=== PATIENT | female | born 1935 | race Caucasian/White ===

== ENCOUNTER → 2018-08-11 16:10 | Outpatient (REF) | payer MEDICARE, SELFPAY | LOC: LAB 16:10 | PROVIDERS: PCP Family Medicine; Visit Provider Nurse Practitioner Family | DX: L08.9 Local infection of the skin and subcutaneous tissue, unspecified (principal) | CPT/HCPCS: 87070; 87075; 87077; 87147; 87186; 87205 ==

== ENCOUNTER → 2019-06-25 15:24 | Outpatient (ROUT) | payer MEDICARE, SELFPAY | PROVIDERS: PCP Family Medicine; Visit Provider Internal Medicine | DX: R89.5 Abnormal microbiological findings in specimens from other organs, systems and tissues (principal); B96.89 Other specified bacterial agents as the cause of diseases classified elsewhere | CPT/HCPCS: 87070; 87075; 87077; 87147; 87186; 87205 ==

== ENCOUNTER → 2019-11-19 11:01 | Outpatient (ROUT) | payer MEDICARE, SELFPAY | PROVIDERS: PCP Family Medicine; Visit Provider Registered Nurse | DX: R89.5 Abnormal microbiological findings in specimens from other organs, systems and tissues (principal); B96.89 Other specified bacterial agents as the cause of diseases classified elsewhere | CPT/HCPCS: 87070; 87075; 87077; 87147; 87186; 87205 ==

== ENCOUNTER 2019-12-13 19:50 | Observation (INO) | payer MEDICARE, SELFPAY ==
[2019-12-13 20:23] VITALS: BP 143/63; PULSE 75; RESP 16; TEMP 37.6; O2SAT 99
[2019-12-13 20:24] LABS: Add Manual Diff / Slide Review NO; Basophils Absolute Auto 100 /uL (0-100); Basophils Percent Auto 0.6 % (0-2); Eosinophils Absolute Auto 0 /uL (0-450); Eosinophils Percent Auto 0.1 % (2-4); Hematocrit 41.3 % (36-46); Hemoglobin 14.1 g/dL (12.0-16.0); Lymphocytes Absolute Auto 1700 /uL (1100-4500); Lymphocytes Percent Auto 16.2 % (25-40); Mean Corpuscular HGB Conc 34.1 % (30-36); Mean Corpuscular Volume 90.9 fL (80-100); Monocytes Absolute Auto 500 /uL (0-900); Monocytes Percent Auto 5.1 % (3-14); Neutrophils Absolute Auto 8100 /uL (1500-7000); Platelet Count 236 X10^3/uL (150-400); Red Blood Cell Count 4.54 X10^6/uL (4.0-5.2); White Blood Cell Count 10.4 X10^3/uL (4.5-11.0)
[2019-12-13] MEDS: VANCOMYCIN 1,000 MG/200 ML PIGGYBACK 200 MG IV (20:33)
[2019-12-13] MEDS: SODIUM CHLORIDE 0.9% 1,000 ML 100 ML IV (20:33)
--- NOTE | 2019-12-13 21:10 | PC.NURSE ---
Pt arrives via EMS, EMS reports cellulitis to right arm and spreading to back. Pt on antibiotics, hx of dementia, poor historian not able to get history from Pt. Pt also has wound to L foot covered with bandage upon arrival.
[2019-12-13 21:39] LABS: Alanine Aminotransferase 10 IU/L (<35); Albumin 3.5 g/dL (3.5-5.0); Albumin Globulin Ratio 1.1 (1.0-2.8); Alkaline Phosphatase 69 U/L (38-126); Aspartate Aminotransferase 21 IU/L (14-36); Bilirubin Total 0.3 mg/dL (0.2-1.3); Blood Urea Nitrogen 12 mg/dL (7-17); Calcium 9.3 mg/dL (8.4-10.2); Carbon Dioxide 27 mmol/L (22-32); Chloride 97 mmol/L (98-107); Estimated Glomerular Filt Rate > 60.0 mL/min (>60); Globulin 3.3 g/dL (1.7-4.1); Glucose 110 mg/dL (80-110); HEMOLYSIS < 15 (0-50); Lactate (Lactic Acid) 1.2 mmol/L (0.7-2.1); Potassium 4.4 mmol/L (3.4-5.1); Sodium 132 mmol/L (137-145); Total Protein 6.8 g/dL (6.3-8.2)
[2019-12-13 21:41] VITALS: BP 129/69; PULSE 82; RESP 13; O2SAT 96
--- NOTE | 2019-12-13 22:04 | ED_ITS ---
HPI - Sepsis General Chief Complaint: Fever Mode of arrival: EMS Source: EMS and other (Dr Davey) Limitations: altered mental status Evaluation Sepsis Screen: No Definite Risk Narrative: The patient resides in a local adult care facility. She has dementia, I was contacted by her doctor, Dr. Davey. The patient has recently been on doxycycline for a left lateral foot infection, finishing the doxycycline course about 4 days ago. She was contacted by the care facility today due to redness on the right arm. She initially intended to restart doxy, then decided to start Septra DS, after phone conversation. She did evaluate the patient. There is cellulitis in the right upper extremity, and across her upper back. There is no clear etiology to explain this distribution of erythema and inflammation. Fevers not prevalent. The patient responds verbally, but generally confused. After arrival here, she is initially not responding verbally, but is obviously awake and watching me. Later she did make comments, inconsistent with the events at that time. She has a history of dementia, but her response may be altered. The patient is DNR. Dr. Davey considered treatment of the infection locally in the care facility. Apparently state guidelines require she be assessed a here at the hospital. There is no suggestion of URI symptoms, cough or dyspnea. There is no nausea vomiting. She has no chronic skin issues. In addition to dementia, she also has a diagnosis of schizophrenia and seizure disorder. I discussed the case with the patient's legal advocate, Ms. Connie Sierra. Ms. Sierra would have advocated her stay in the facility, but felt it was necessary for her to the patient be evaluate her also. Review of Systems Review of Systems ROS Unobtainable: Unobtainable due to medical condition Patient History Medical History (Updated 12/14/19 @ 05:19 by Zaid Nicholson MD) Bipolar disorder (Acute) Dementia (Acute) Seizures (Acute) Surgical History Status post rotator cuff repair Family History Father Essential hypertension Mother Diabetes mellitus Social History (Updated 12/14/19 @ 05:10 by Zaid Nicholson MD) household members: none Smoking Status: Never smoker alcohol intake: never additional social history: The patient resides the [facility]. Smoking Status: Never smoker Substance Use Type: does not use Exam Initial Vital Signs Initial Vital Signs: Vital Signs Temperature 99.6 F 12/13/19 20:23 Pulse Rate 75 12/13/19 20:23 Respiratory Rate 16 12/13/19 20:23 Blood Pressure 143/63 H 12/13/19 20:23 Pulse Oximetry 99 12/13/19 20:23 Const General: No acute distress, disheveled and frail appearing Nutritional Appearance: average body habitus [facility] Head: normocephalic and atraumatic Mouth: oral mucosae normal Eyes General: appearance normal, both eyes and all related structures Eyelids: eyelids normal Conjunctivae: conjunctivae normal Sclera: sclerae normal Pupils: PERRL EOM: EOM intact bilaterally Neck Neck: normal visual inspection, trachea midline, No lymphadenopathy and No JVD Lymphatic: No lymphedema Resp Effort & Inspection: normal respiratory effort, able to speak in complete sentences, no respiratory distress and no use of accessory muscles Auscultation: clear to auscultation bilaterally, no rales, no rhonchi and no wheezes Cardio Rate: regular rate Rhythm: regular rhythm Heart Sounds: S1 normal, S2 normal, no click, no gallops, no murmurs and no rubs Pulses: normal peripheral pulses GI Palpation: soft and No tender Back/Spine/Pelvis Back: No CVA tenderness Skin Other: Erythema with warmth on the right upper arm, above the elbow. Erythema with warmth extending across her thoracic back. There is no fluctuance or induration. There is no area of purulence. There is no indicator for the rash may have started. There is no other significant area of erythema. Her left foot which was recently treated seems she has an area of flaky skin on the left lateral foot without significant erythema or warmth. Extrem Other: Rigidity in all extremities, extension of the ankles bilaterally with significant decreased motion in the lower extremities. Dorsalis pedis pulses normal in both feet. Course Course Course Narrative: The patient was on doxycycline just recently. I started the patient on IV vancomycin. Labs are reviewed. The hospitalist, JAIRO Reynoso was contacted. The patient will be admitted for continued IV antibiotics. Orders Ordered: ED Orders 12/13/19 20:55 Blood Culture Stat Comprehensive Metabolic Panel Stat Lactate (Lactic Acid) Stat Sodium Chloride (Normal Saline 0.9%) 1,000 mls @ 100 mls/hr IV CONT JEANE Last Admin: 12/13/19 20:33 Dose: 100 mls/hr Documented by: ZAHIDA Loratadine (Claritin) 10 mg PO DAILY [facility] Last Admin: 12/14/19 03:56 Dose: 10 mg Documented by: MELISSA Naloxone HCl (Narcan) 0.2 mg IV Q2MIN PRN PRN Reason: Opiate Reversal Zinc Acetate/Diphenhydramine (Itch Relief Cream) 1 applic TOP TID [facility] Discontinued Medications Vancomycin HCl (Vancomycin) 1,000 mg in 200 mls @ 200 mls/hr IV NOW ONE Stop: 12/13/19 21:23 Last Infusion: 12/13/19 22:43 Dose: 100 mls/hr Documented by: Admin: 12/13/19 20:33 Dose: 200 mls/hr Documented by: ZAHIDA Methylprednisolone (Solu-Medrol 125 Mg Vial) 60 mg IV NOW ONE Stop: 12/14/19 03:26 Last Admin: 12/14/19 03:55 Dose: 60 mg Documented by: MELISSA Vital Signs Vital signs: Vital Signs - 8 hr 12/13/19 21:41 12/13/19 22:16 12/13/19 22:30 Pulse Rate 82 77 73 Respiratory Rate 13 18 21 Blood Pressure [Left Arm] 129/69 130/62 136/68 Pulse Oximetry 96 96 93 MDM - Sepsis Lab Data Result diagrams: 12/13/19 20:00 12/13/19 20:55 Labs: Lab Results 12/13/19 12/13/19 12/13/19 Range/Units 20:00 20:55 20:55 WBC 10.4 (4.5-11.0) X10^3/uL RBC 4.54 (4.0-5.2) X10^6/uL Hgb 14.1 (12.0-16.0) g/dL Hct 41.3 (36-46) % MCV 90.9 (80-100) fL MCH 31.0 (26-34) PG MCHC 34.1 (30-36) % RDW 14.0 (11.6-14.8) % Plt Count 236 (150-400) X10^3/uL Neut % (Auto) 78.0 H (50-75) % Lymph % (Auto) 16.2 L (25-40) % [place] % (Auto) 5.1 (3-14) % Eos % (Auto) 0.1 L (2-4) % Baso % (Auto) 0.6 (0-2) % Neut # (Auto) 8100 H (2255-1619) /uL Lymph # (Auto) 1700 (0621-1379) /uL [place] # (Auto) 500 (0-900) /uL Eos # (Auto) 0 (0-450) /uL Baso # (Auto) 100 (0-100) /uL Sodium 132 L (137-145) mmol/L Potassium 4.4 (3.4-5.1) mmol/L Chloride 97 L (98-107) mmol/L Carbon Dioxide 27 (22-32) mmol/L BUN 12 (7-17) mg/dL Creatinine 0.60 (0.52-1.04) mg/dL Estimated GFR > 60.0 (>60) mL/min BUN/Creatinine Ratio 20.0 (6-22) Glucose 110 (80-110) mg/dL Lactate 1.2 (0.7-2.1) mmol/L Calcium 9.3 (8.4-10.2) mg/dL Total Bilirubin 0.3 (0.2-1.3) mg/dL AST 21 (14-36) IU/L ALT 10 (<35) IU/L Alkaline Phosphatase 69 (38-126) U/L Total Protein 6.8 (6.3-8.2) g/dL Albumin 3.5 (3.5-5.0) g/dL Globulin 3.3 (1.7-4.1) g/dL Albumin/Globulin Ratio 1.1 (1.0-2.8) Discharge Plan Departure Patient Disposition: Admitted as Observation Clinical Impression: Cellulitis, Dementia Discharge Date/Time: 12/13/19 23:51 Admit Date/Time: 12/13/19 22:39 Admit Provider: Mitchell Reynoso
[2019-12-13 22:16] VITALS: BP 130/62; PULSE 77; RESP 18; O2SAT 96
[2019-12-13 22:30] VITALS: BP 136/68; PULSE 73; RESP 21; O2SAT 93
[2019-12-13 23:02] VITALS: BP 136/68; PULSE 75; RESP 18; O2SAT 94
[2019-12-14 00:47] VITALS: BP 120/75; PULSE 75; RESP 18; TEMP 36.9; O2SAT 92
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
--- NOTE | 2019-12-14 02:31 | PC.ADMIT ---
Addendum entered by Salud Pettit R.N. 12/14/19 03:17: Photos taken of patient's wound and EZ graph done and placed in chart. Original Note: Patient arrived on floor at 0030, via portable stretcher and was transferred via slider board. Patient is alert to self and knows her birthday and where she is. VSS, lung sounds clear, patient denies pain or nausea. Patient has skin ulcer on L medial foot, and erythema rash on right arm extending to her full back, blanchable erythema area on coccyx. Patient is maximum assist, and Q2 turn for worries about skin break down, patient is not able to move on her own. Patient is contracted in arms and hands bilaterally, L foot mildly looks deformed and patient can not move that leg. Heels were floated w/waffle cushion boots. L foot wound open to air. SCD's bilaterally, patient was educated on use of call light, bed is low and locked, bed alarm on. [id number] Admission Note: The patient,Kalpana Alonso,84 y/o, was given written information regarding hospital policies, unit procedures and contact persons. Patient's smoking status: Never smoker. Vital Signs - 8 hr 12/13/19 20:23 12/13/19 21:41 12/13/19 22:16 Temperature 99.6 F Pulse Rate 75 82 77 Respiratory Rate 16 13 18 Blood Pressure 143/63 H Blood Pressure [Left Arm] 129/69 130/62 Pulse Oximetry 99 96 96 12/13/19 22:30 12/13/19 23:02 12/14/19 00:47 Temperature 98.4 F Pulse Rate 73 75 75 Respiratory Rate 21 18 18 Blood Pressure 120/75 Blood Pressure [Left Arm] 136/68 136/68 Pulse Oximetry 93 94 92 Oa
[2019-12-14] MEDS: methylPREDNISolone 125 MG/2 ML VIAL 60 MG IV (03:55)
[2019-12-14] MEDS: LORATADINE 10 MG TABLET PO (03:56)
[2019-12-14 06:48] VITALS: BP 107/58; PULSE 64; RESP 16; TEMP 36.2; O2SAT 91
[2019-12-14 07:50] VITALS: BP 140/70; PULSE 69; RESP 16; TEMP 36.1; O2SAT 95
[2019-12-14] MEDS: ASPIRIN 81 MG CHEW TAB PO (08:54)
[2019-12-14] MEDS: CITALOPRAM 20 MG TABLET PO (08:54)
[2019-12-14 09:23] LABS: Blood Urea Nitrogen 11 mg/dL (7-17); Calcium 9.1 mg/dL (8.4-10.2); Carbon Dioxide 22 mmol/L (22-32); Chloride 102 mmol/L (98-107); Estimated Glomerular Filt Rate > 60.0 mL/min (>60); Glucose 139 mg/dL (80-110); HEMOLYSIS 23 (0-50); Potassium 4.2 mmol/L (3.4-5.1); Sodium 134 mmol/L (137-145)
[2019-12-14 09:32] LABS: Add Manual Diff / Slide Review NO; Basophils Absolute Auto 200 /uL (0-100); Eosinophils Absolute Auto 0 /uL (0-450); Eosinophils Percent Auto 0.1 % (2-4); Hematocrit 40.1 % (36-46); Hemoglobin 13.6 g/dL (12.0-16.0); Lymphocytes Absolute Auto 800 /uL (1100-4500); Lymphocytes Percent Auto 10.5 % (25-40); Mean Corpuscular HGB Conc 33.8 % (30-36); Mean Corpuscular Hemoglobin 30.9 PG (26-34); Mean Corpuscular Volume 91.4 fL (80-100); Monocytes Absolute Auto 100 /uL (0-900); Monocytes Percent Auto 1.3 % (3-14); Neutrophils Absolute Auto 6200 /uL (1500-7000); Neutrophils Percent Auto 85.1 % (50-75); Platelet Count 173 X10^3/uL (150-400); Red Blood Cell Count 4.39 X10^6/uL (4.0-5.2); Red Cell Distribution Width 14.2 % (11.6-14.8); White Blood Cell Count 7.3 X10^3/uL (4.5-11.0)
--- NOTE | 2019-12-14 11:00 | CM.DANOTE ---
Addendum entered by Reva Jimenez R.N. 12/14/19 12:55: Spoke to Taya, for patient has discharge orders. Faxed over signed med list, and discharge summary. Confirmed lease picker time of 1430, and updated guardian, Laurel, as well as nurse, Li. Updated white board as well. Original Note: DCP: Case received, EMR reviewed, and checked on patient. Was able to call over at [facility] and speak to Taya, charge nurse, at [facility]. Also, discussed patient during patient rounds. DCP assessment completed with information currently available. Patient is an 84 year old female who admitted yesterday evening to the care of the hospitalist team. PCP: Dr. Loera/Basim. Payer: confirmed: Medicare. Patient came over to the hospital via ambulance from [facility]. Staff/nurses, were conderned that patient might have cellulitis on her upper extremity that spread to her back. Spoke to Taya, charge nurse at [facility]. Baseline care consists of hoier lift, otherwise, patient is mostly in bed. She does get up for meals, has some swallowing deficits, and needs cueing for eating. She is total care. Confirmed that patient does have a guardian named Laurel Sierra. Did speak to Laurel, for she called with an update. Let her know that patient could potentially discharge today. P: DCP to continue to follow. Patient could discharge back to [facility] today, for Dr. West stated that redness looks like dermatitis, versus cellulitis. Updated Taya at [facility], who stated that they can accept her back today without needing an assessment. Reva Jimenez RN/[employer]
[2019-12-14] MEDS: DIPHENHYDRAMINE TOP (11:22)
[2019-12-14] MEDS: ZINC TOP (11:22)
[2019-12-14 11:35] VITALS: BP 97/66; PULSE 67; RESP 14; TEMP 36.4; O2SAT 94
[2019-12-14] MEDS: DIVALPROEX DR 250 MG TABLET 500 MG PO (12:34)
--- NOTE | 2019-12-14 14:42 | PC.NURSE ---
Addendum entered by Li Rodriguez R.N. 12/14/19 14:46: DC - per , pt to return to [facility], [place] oral abx pt had been on, OTC scripts provided per discussed with Zully, nurse at [facility], signed med list provided, pt karen lift to , no clothing here, only pad. Pt cheerful, no complaints. Original Note: AM NOTE - pt awakens easily, oriented to hospital, responses are appropriate, denies pain, 3+ pedal edema l foot w/foot drop, wearing ulises heel protectors, allevyn to chronic wound cdi, can only wiggle to toes on her rt foot on command, ra 95%, pt has a red, non raised scattered rash area from r elbow up arm to shoulder and accross r scapula, no open areas, smooth to touch, ulises resting hand tremors, does keep hands contracted but with set up able to feed herself some 'I can do it myself, incont urine and stool, pericare performed, barrier cream to buttock, no opening noted.
--- NOTE | 2019-12-14 16:50 | PM.DS.1 ---
History of Present Illness History of Present Illness Date Patient Seen: 12/14/19 Time Patient Seen: 08:30 Chief complaint: Rt Arm cellulitis Narrative: As per JAIRO Mariano: HPI is obtained via review of records. Patient is unable to partake in the HPI interview due to underlying cognitive impairments. The patient is an 84-year-old with PMHx of psychiatric illness, dementia (records suspect Alzheimer's), GERD, overactive bladder, RLS, glaucoma, left foot/ankle injury, and loss of physical independence since May 2016. Patient's psychiatric history significant for bipolar 1 disorder, dx at age 67 (w/ psychotic sx), unspecified neurocognitive disorder, schizophrenia and psychogenic polydipsia w/ hyponatremia. She is known to have had multiple psychiatric hospitalizations for threats of suicide, acute psychosis, or cognitive impairment. Records show prior hospitalizations at [facility] and [facility]. Patient presented to the ED via EMS on 12/13/2019 and triaged at 8:23 p.m. Presenting complaint of cellulitis of the right arm. It was noted that patient was receiving antibiotics, however cellulitis is not improving, and has now spread to the back. I spoke to the care staff at [facility]. Per info provided, patient was diagnosed with RUE cellulitis and started on doxycycline. Patient was noted to have associated symptoms of a fever and change in mental status. Patient was noted as febrile, however she did not have any fevers on presentation to the ED. Review of her record shows no documented fever at her care facility. On arrival to the ED patient had stable VS... T 99.6F BP 143/63 HR 75 RR 16 and SpO2 99%. Her presenting mentation is noted as confused per ED record. Patient does have underlying dementia and baseline neurocognitive impairment. Patient also presented with a wound to left lateral foot. Initial ED labs were fairly unremarkable. No leukocytosis or left shift. Normal lactate (1.2). No overt electrolyte abnormalities with exception of mild hyponatremia, Na 132 Cl 97, in a patient with multiple psychotropic medications and a history of documented psychogenic polydipsia with hyponatremia. No laboratory evidence of kidney or liver dysfunction. No SIRS. Review of patient's records shows MRSA positive wound culture (location of wound is not specified) that is sensitive to daptomycin, vancomycin, clindamycin, doxycycline, erythromycin, gentamicin, and Bactrim. Wound cx results dated 11/19/2018. Patient has a consistent trend of MRSA positive wound culture of the wound in her left lower extremity. It appears patient was started on a seven day course of doxycycline on 12/11/2019 and Benadryl prn. It appears 2 days ago she has developed redness of RUE. Over the past 2 days patient has not been febrile or had any abnormal VS per my conversation with the care staff at [facility]. However, the nurse did comment that it was communicated to her that the patient was acting funny. The nurse could not comment further on with that means. The nurse did communicated that patient's symptoms included right upper extremity redness with spread to posterior upper back, reports patient having itching, also notes that patient may have had associated pain and reports patient being treated for pain. No reported fever or chills. Denies patient having recent illness / hospitalizations. Patient's medication was changed to Bactrim 800-160 mg BID on 12/13/2019. However, patient has not received the medication since the change was made. Patient has multiple medication allergies. Record provided from [facility] shows allergy to PCN, iodine, niacin, tramadol, procaine, and aripiprazole. However, additional review of records available within hospital medical system shows previously noted allergy to sulfonamides (noted on wound care note dated 04/09/2017) and hydrocodone. She received Benadryl 25mg x1 on 12/10. Patient's medication administration record does not show that she was treated for pain in the last 3 days. It was communicated to me by the ED provider that patient has history of seizures. No seizure activity was reported. Also, patient's presenting mental status was communicated as not responsive and not coherent. The ED physician further noted speaking to Dr. Stallworth who described patient as having ability to interact, but not necessarily be coherent. It is being noted that patient was treated for a left foot infection with doxycycline, which is not consistent from will was communicated by [facility] staff (ie. treated for RUE cellulitis). Patient was noted to be a DNR status. She was noted to have a state-appointed guardian, Laurel Mariela. While in the ED patient was said to have been treated with 1L NS bolus and 1 g of vancomycin. Discharge Providers Provider Date of admission: 12/13/19 22:39 Discharge Date: 12/14/19 Primary care physician: Roma Loera MD Consults: 12/14/19 01:02 Consult to Dietitian, Adult Routine Comment: Reason For Exam: patient has very limited mobility, max assistance. 12/14/19 01:12 Consult to Dietitian, Adult Routine Comment: Reason For Exam: patient is max assist, movement limited. Discharge provider: Nino West DO Summary Hospital Course Discharge Diagnosis: Right upper extremity rash, acute, present on admission, active Hyponatremia (Na 132), likely chronic, present on admission, improved Left lateral foot ulcer, chronic, present on admission, stable Dementia with behavioral disturbance, chronic condition, present on admission, stable Physical debility and deconditioning, chronic, present on admission, active Bipolar 1 disorder w/ features of depression, chronic condition, present on admission, stable Overactive bladder, chronic condition, present on admission, stable Hospital Course: The patient was admitted over concern for right upper extremity rash, initially admitted over concern for cellulitis. However the appearance of the rash is not consistent with cellulitis, the rash is not tender warm or confluent. Her symptoms did improve after she was given a dose of steroids, and topical itch cream as well as started on an antihistamine. Patient was discharged back to her assisted living facility the next morning. If the rash continues despite these measures, would recommend evaluation by head usher. She had also been started recently on multiple antibiotics in this could be represented possible drug rash. I did recommend stopping her doxycycline and Bactrim given multiple drug allergies in the past, and relatively chronic appearing wound the did not appear that it needed treatment. If she needs further evaluation for her wound, would recommend possible infectious disease to determine most optimal management, or possible consultation with wound care clinic. Status at Discharge Cognitive/behavioral status at discharge: at baseline, confused Overall status at discharge: patient is back to baseline Exam Vital Signs (past 8 hours): - 12/14/19 11:35 Temperature 97.6 F Pulse Rate 67 Respiratory Rate 14 Blood Pressure 97/66 Pulse Oximetry 94 Oxygen Delivery Method Room Air Oxygen Flow Rate 0 Narrative Exam Narrative: GENERAL APPEARANCE: Elderly female, sitting upright in hospital bed, eating breakfast. SKIN: Left lateral foot with clear dry and intact dressing. Right upper extremity rash is localized to the right upper arm, there is no tenderness. The rash is erythematous, not raised, blanching, and nonpruritic. There is no warmth. HEENT: The sclerae were anicteric and conjunctivae were pink and moist. Extraocular movements were intact and pupils were equal, round with normal accommodation. External inspection of the ears and nose showed no scars, lesions, or masses. Lips, teeth, and gums showed normal mucosa. The oral mucosa, hard and soft palate, tongue and posterior pharynx were unremarkable. NECK: Supple and symmetric. There was no thyroid enlargement, and no tenderness, or masses were felt. CHEST: Normal AP diameter and normal contour without any kyphoscoliosis. LUNGS: Auscultation of the lungs revealed no wheezes, rhonchi, or rales. CARDIOVASCULAR: There was a regular rate and rhythm without any murmurs, gallops, rubs. Peripheral pulses were 2+ and symmetric. ABDOMEN: Soft and nontender with normal bowel sounds. No ascites was noted. MUSCULOSKELETAL: There was no tenderness or effusions noted. Muscle strength and tone were normal. EXTREMITIES: No cyanosis, clubbing or edema. NEUROLOGIC: Alert and oriented x 2. Normal affect. Objective Labs Result Diagrams: 12/14/19 08:40 12/14/19 08:40 Labs: Laboratory Results - last 24 hr 12/13/19 12/13/19 12/13/19 20:00 20:55 20:55 WBC 10.4 RBC 4.54 Hgb 14.1 Hct 41.3 MCV 90.9 MCH 31.0 MCHC 34.1 RDW 14.0 Plt Count 236 Neut % (Auto) 78.0 H Lymph % (Auto) 16.2 L Boyle % (Auto) 5.1 Eos % (Auto) 0.1 L Baso % (Auto) 0.6 Neut # (Auto) 8100 H Lymph # (Auto) 1700 Boyle # (Auto) 500 Eos # (Auto) 0 Baso # (Auto) 100 Sodium 132 L Potassium 4.4 Chloride 97 L Carbon Dioxide 27 BUN 12 Creatinine 0.60 Estimated GFR > 60.0 BUN/Creatinine Ratio 20.0 Glucose 110 Lactate 1.2 Calcium 9.3 Total Bilirubin 0.3 AST 21 ALT 10 Alkaline Phosphatase 69 Total Protein 6.8 Albumin 3.5 Globulin 3.3 Albumin/Globulin Ratio 1.1 12/14/19 12/14/19 08:40 08:40 WBC 7.3 RBC 4.39 Hgb 13.6 Hct 40.1 MCV 91.4 MCH 30.9 MCHC 33.8 RDW 14.2 Plt Count 173 Neut % (Auto) 85.1 H Lymph % (Auto) 10.5 L Boyle % (Auto) 1.3 L Eos % (Auto) 0.1 L Baso % (Auto) 3.0 H Neut # (Auto) 6200 Lymph # (Auto) 800 L Boyle # (Auto) 100 Eos # (Auto) 0 Baso # (Auto) 200 H Sodium 134 L Potassium 4.2 Chloride 102 Carbon Dioxide 22 BUN 11 Creatinine 0.50 L Estimated GFR > 60.0 BUN/Creatinine Ratio 22.0 Glucose 139 H Lactate Calcium 9.1 Total Bilirubin AST ALT Alkaline Phosphatase Total Protein Albumin Globulin Albumin/Globulin Ratio Discharge Plan Discharge Plan Patient Disposition: Assisted Living Transfer to: [facility] Discharge comment: You were admitted to the hospital for a possible cellulitis, this rash, however is not consistent with cellulitis and appears more consistent with an allergic type reaction. If started on any recent medications please consider discontinuing these. I would recommend reconsideration of oral antibiotics including doxycycline and bactrim for the ulcer. Consider infectious disease consultation. Can continue benadryl as needed as well as topical therapies for skin. If no improvement recommend dermatology evaluation. Patient was given dose of steroids as well. Discharge orders & Medications Discharge Orders: Discharge (Order); Ordered 12/14/19 Ordered By: Nino West Prescriptions: New Itch Relief 2-0.1 % Cream 1 applic topical TID 7 Days RF: 0 loratadine 10 mg Tablet 10 mg PO DAILY 7 Days Qty: 7 RF: 0 Continued diphenhydramine HCl [Benadryl Allergy] 25 MG tablet 25 mg PO Q4HP PRN (Reason: Itching) Qty: 0 RF: 0 acetaminophen 325 MG tablet 325 - 650 mg PO Q4H PRN (Reason: Fever Or Pain) Qty: 0 RF: 0 citalopram [Celexa] 20 MG tablet 20 mg PO QDAY Qty: 90 RF: 3 aspirin 81 MG tablet,chewable 81 mg PO QDAY Qty: 90 RF: 3 quetiapine [Seroquel] 300 MG tablet 300 mg PO HS Qty: 30 RF: 2 divalproex 250 mg tablet,delayed release (DR/EC) 500 mg PO DAILY RF: 0 quetiapine 100 mg tablet 100 mg PO QAM RF: 0 ammonium lactate 12 % Lotion 1 applic TOPICAL DAILY RF: 0 multivitamin with minerals Tablet 1 tab PO DAILY RF: 0 sodium chloride [Saline Mist] 0.65 % Aerosol,[place] 2 spray INTRANASAL BID RF: 0 nystatin 100,000 unit/gram powder 1 applic TOPICAL PRN PRN (Reason: Rash) RF: 0 sodium chloride 0.9 % Solution 0.9 % TOPICAL DIRECTED PRN (Reason: rinse left foot) RF: 0 oxybutynin chloride [Ditropan XL] 5 MG tablet extended release 24hr 5 mg PO DAILY RF: 0 Discontinued doxycycline monohydrate 100 MG tablet 100 mg PO BID Qty: 20 RF: 0 sulfamethoxazole-trimethoprim 800-160 mg tablet 1 tab PO [id number] RF: 0 Follow up/Referrals: Roma Loera MD [Primary Care Provider] - Discharge Health Status Multidrug resistant organism: MRSA Precautions: Contact Diet/Activity/Treatments Diet: Diet as Tolerated Activity: As tolerated Discharge Data Primary Care Provider: Roma Loera Attending Provider: Mitchell Reynoso Admit Date/Time: 12/13/19 22:39 Discharges patient from system. Discharge Date/Time: 12/14/19 14:45
== END 2019-12-14 14:45 ==
LOC: ED 20:40 → AC 22:40
PROVIDERS: Admitting Provider Nurse Practitioner Gerontology; Emergency Provider Emergency Medicine; PCP Family Medicine; Visit Provider Nurse Practitioner Gerontology
DX: R21 Rash and other nonspecific skin eruption (principal); R50.9 Fever, unspecified; L97.529 Non-pressure chronic ulcer of other part of left foot with unspecified severity; E87.1 Hypo-osmolality and hyponatremia; F03.91 Unspecified dementia, unspecified severity, with behavioral disturbance; N32.81 Overactive bladder; R53.81 Other malaise; F32.89 Other specified depressive episodes
CPT/HCPCS: 36415; 80048; 80053; 83605; 85025; 87040; 96361; 96365; 96366; 96375; 99284; G0378; J2930

== ENCOUNTER → 2020-01-27 07:12 | Outpatient (ROUT) | payer MEDICARE, SELFPAY ==
[2020-01-27 08:05] LABS: Add Manual Diff / Slide Review NO; Basophils Absolute Auto 100 /uL (0-100); Basophils Percent Auto 1.2 % (0-2); Eosinophils Absolute Auto 0 /uL (0-450); Eosinophils Percent Auto 0.2 % (2-4); Hematocrit 36.9 % (36-46); Hemoglobin 12.4 g/dL (12.0-16.0); Lymphocytes Absolute Auto 1500 /uL (1100-4500); Lymphocytes Percent Auto 20.1 % (25-40); Mean Corpuscular HGB Conc 33.6 % (30-36); Mean Corpuscular Hemoglobin 30.6 PG (26-34); Mean Corpuscular Volume 90.9 fL (80-100); Monocytes Absolute Auto 400 /uL (0-900); Neutrophils Absolute Auto 5400 /uL (1500-7000); Neutrophils Percent Auto 73.5 % (50-75); Platelet Count 210 X10^3/uL (150-400); Red Blood Cell Count 4.06 X10^6/uL (4.0-5.2); Red Cell Distribution Width 14.2 % (11.6-14.8); White Blood Cell Count 7.4 X10^3/uL (4.5-11.0)
[2020-01-27 08:24] LABS: BUN Creatinine Ratio 28.8 (6-22); Blood Urea Nitrogen 17 mg/dL (7-17); Calcium 9.3 mg/dL (8.4-10.2); Carbon Dioxide 27 mmol/L (22-32); Chloride 97 mmol/L (98-107); Estimated Glomerular Filt Rate > 60.0 mL/min (>60); Glucose 99 mg/dL (80-110); HEMOLYSIS < 15 (0-50); Potassium 4.7 mmol/L (3.4-5.1); Sodium 130 mmol/L (137-145)
[2020-01-27 08:34] LABS: Erythrocyte Sedimentation Rate 57 MM/HR (0-20)
[2020-01-30 18:36] LABS: ANA Screen, IFA Negative (.)
== END ==
PROVIDERS: PCP Family Medicine; Visit Provider Internal Medicine
DX: R21 Rash and other nonspecific skin eruption (principal)
CPT/HCPCS: 36415; 80048; 85025; 85651; 86038

== ENCOUNTER → 2020-03-09 07:30 | Outpatient (ROUT) | payer MEDICARE, SELFPAY ==
[2020-03-09 21:36] LABS: Valproic Acid (Depakene) Total 57 ug/mL (50-100)
== END ==
PROVIDERS: PCP Family Medicine; Visit Provider Nurse Practitioner Gerontology
DX: Z79.899 Other long term (current) drug therapy (principal)
CPT/HCPCS: 36415; 80164

== ENCOUNTER → 2020-03-24 13:42 | Outpatient (ROUT) | payer MEDICARE, MEDICAID, SELFPAY ==
[2020-03-25 02:23] LABS: COVID19 Sendout Not Detected (Not Detect)
== END ==
PROVIDERS: PCP Family Medicine; Visit Provider Internal Medicine
DX: Z11.59 Encounter for screening for other viral diseases (principal)
CPT/HCPCS: 87635

== ENCOUNTER → 2020-03-31 15:48 | Outpatient (ROUT) | payer MEDICARE, MEDICAID, SELFPAY ==
[2020-04-04 12:10] LABS: COVID19 Sendout Not Detected (Not Detected)
== END ==
PROVIDERS: PCP Family Medicine; Visit Provider Internal Medicine
DX: Z20.828 Contact with and (suspected) exposure to other viral communicable diseases (principal)
CPT/HCPCS: 87635

== ENCOUNTER 2020-08-18 08:18 | Inpatient (IN) | payer MEDICARE, MEDICAID, SELFPAY ==
[2020-08-18] VITALS (31 sets, daily range): BP systolic 85–122; BP diastolic 51–70; PULSE 75–101; RESP 16–21; TEMP 36.3–36.8; O2SAT 92–96; BMI 26.2
--- NOTE | 2020-08-18 08:24 | ED_ITS ---
HPI - General Adult General Chief complaint: Altered Mental Status Stated complaint: Decreased LOC, Fever Time Seen by Provider: 08/18/20 08:23 Source: EMS Mode of arrival: EMS Limitations: altered mental status History of Present Illness HPI narrative: Patient is an 85-year-old female. Is a DNR/DNI. Lives at a [facility] facility across the street was sent over by EMS for evaluation of altered mental status and fevers. Patient unable to provide any HPI. All history was provided by EMS which they obtained by report from the staff. Apparently at baseline the patient has a history of dementia. I am unsure is exactly how high functioning that she is with regard to this diagnosis although it was reported that her mental status today is different from her baseline. Reportedly that the fevers occurred this morning. She did receive Tylenol prior to arrival. The reports that she has ?crackles? in the her left lungs. Related Data Home Medications Medication Instructions Recorded Confirmed acetaminophen 325 - 650 mg PO Q4H PRN #0 11/18/16 12/14/19 diphenhydramine HCl [Benadryl 25 mg PO Q4HP PRN #0 11/18/16 12/14/19 Allergy] ammonium lactate 1 applic TOPICAL DAILY 12/14/19 12/14/19 divalproex 500 mg PO DAILY 12/14/19 12/14/19 multivitamin with minerals 1 tab PO DAILY 12/14/19 12/14/19 nystatin 1 applic TOPICAL PRN PRN 12/14/19 12/14/19 oxybutynin chloride [Ditropan XL] 5 mg PO DAILY 12/14/19 12/14/19 quetiapine 100 mg PO QAM 12/14/19 12/14/19 sodium chloride 0.9 % TOPICAL DIRECTED PRN 12/14/19 12/14/19 sodium chloride [Saline Mist] 2 spray INTRANASAL BID 12/14/19 12/14/19 Previous Rx's Medication Instructions Recorded citalopram [Celexa] 20 mg PO QDAY #90 tab 12/04/16 aspirin 81 mg PO QDAY #90 mg 04/22/17 quetiapine [Seroquel] 300 mg PO HS #30 tab 10/16/17 Allergies Allergy/AdvReac Type Severity Reaction Status Date / Time hydrocodone Allergy not known Verified 08/18/20 08:42 Sulfa (Sulfonamide Allergy Hives Verified 08/18/20 08:42 Antibiotics) Iodine and Iodide Containing AdvReac Intermediate Verified 08/18/20 08:42 Produc aripiprazole AdvReac Verified 08/18/20 08:42 niacin AdvReac Verified 08/18/20 08:42 procaine AdvReac Verified 08/18/20 08:42 tramadol AdvReac Verified 08/18/20 08:42 Review of Systems Review of Systems ROS Unobtainable: Unobtainable due to mental status/LOC Patient History Medical History Bipolar disorder (Chronic) Dementia (Chronic) Seizures (Acute) Surgical History (Updated 12/14/19 @ 06:43 by JAIRO Mariano) History of removal of both ovaries (Acute) Hx of hernia repair (Acute) Status post rotator cuff repair Family History Father Essential hypertension Mother Diabetes mellitus Social History household members: none Smoking Status: Never smoker alcohol intake: never additional social history: The patient resides the [facility]. Smoking Status: Never smoker Substance Use Type: does not use Exam Initial Vital Signs Initial Vital Signs: Vital Signs Temperature 98.0 F 08/18/20 08:37 Pulse Rate 101 H 08/18/20 08:37 Respiratory Rate 18 08/18/20 08:37 Blood Pressure 112/60 08/18/20 08:37 Pulse Oximetry 96 08/18/20 08:37 Const General: comfortable HENMT Head: normal to inspection and normocephalic Eyes Pupils: PERRL Resp Effort & Inspection: normal respiratory effort Auscultation: clear to auscultation bilaterally Cardio Rate: tachycardic Rhythm: regular rhythm GI Inspection: non-distended Palpation: soft and No firm Skin Other: Patient with ulcerations to left foot the do not appear infected Neuro General: patient awake Extrem General: capillary refill normal Psych Appearance: grossly normal and well kempt Scores GCS Orly coma scale eye opening: To sound [place] coma scale verbal response: Sounds [place] coma scale motor response: Localising [place] coma scale total score: 10 Course Orders Ordered: ED Orders 08/18/20 08:25 CT head/brain wo con Stat 08/18/20 08:26 XR chest 1V Stat EKG-12 Lead Stat 08/18/20 08:30 Ammonia (NH3) Stat Complete Blood Count AUTO DIFF Stat Comprehensive Metabolic Panel Stat Ethanol (ETOH) Stat Lactate (Lactic Acid) Stat Lipase Stat Procalcitonin Stat Troponin & CK Cardiac Panel Stat 08/18/20 08:35 Blood Culture Stat 08/18/20 09:00 COVID19 -ED/INPAT/OR/L&D Stat 08/18/20 09:30 Urine Microscopic Stat Sodium Chloride (Normal Saline 0.9%) 1,000 mls @ 125 mls/hr IV CONT JEANE Last Admin: 08/18/20 09:09 Dose: 125 mls/hr Documented by: GENEVIEVE Discontinued Medications Ceftriaxone Sodium/Dextrose (Rocephin) 1 gm in 50 mls @ 100 mls/hr IV NOW ONE Stop: 08/18/20 10:35 Last Infusion: 08/18/20 10:45 Dose: 0 mls/hr Documented by: Admin: 08/18/20 10:16 Dose: 100 mls/hr Documented by: GENEVIEVE Vancomycin HCl (Vancomycin) 1,000 mg in 200 mls @ 200 mls/hr IV NOW ONE Stop: 08/18/20 11:05 Last Admin: 08/18/20 10:47 Dose: 200 mls/hr Documented by: GENEVIEVE Vital Signs Vital signs: Vital Signs - 8 hr 08/18/20 08:37 08/18/20 09:06 08/18/20 09:07 Temperature 98.0 F Pulse Rate 101 H 100 H 99 H Respiratory Rate 18 21 21 Blood Pressure 112/60 108/63 Pulse Oximetry 96 93 93 08/18/20 09:10 08/18/20 09:20 08/18/20 09:30 Temperature Pulse Rate 101 H 100 H 99 H Respiratory Rate 20 20 20 Blood Pressure 114/63 109/65 Pulse Oximetry 93 93 93 08/18/20 09:40 08/18/20 09:50 08/18/20 10:00 Temperature Pulse Rate 101 H 97 H 95 H Respiratory Rate 19 20 20 Blood Pressure 120/70 114/65 122/66 Pulse Oximetry 93 93 93 08/18/20 10:10 Temperature Pulse Rate 94 H Respiratory Rate 20 Blood Pressure 114/65 Pulse Oximetry 93 Medical Decision Making Lab Data Lab results reviewed: Yes I reviewed the patient's lab results. Result diagrams: 08/18/20 08:30 08/18/20 08:30 Labs: Lab Results 08/18/20 08/18/20 08/18/20 Range/Units 08:30 08:30 08:30 WBC 11.5 H (4.5-11.0) X10^3/uL RBC 4.96 (4.0-5.2) X10^6/uL Hgb 14.6 (12.0-16.0) g/dL Hct 44.4 (36-46) % MCV 89.6 (80-100) fL MCH 29.5 (26-34) PG MCHC 33.0 (30-36) % RDW 14.4 (11.6-14.8) % Plt Count 256 (150-400) X10^3/uL Neut % (Auto) 72.3 (50-75) % Lymph % (Auto) 21.0 L (25-40) % Barton % (Auto) 5.7 (3-14) % Eos % (Auto) 0.1 L (2-4) % Baso % (Auto) 0.9 (0-2) % Neut # (Auto) 8400 H (6028-0774) /uL Lymph # (Auto) 2400 (0164-4922) /uL Barton # (Auto) 700 (0-900) /uL Eos # (Auto) 0 (0-450) /uL Baso # (Auto) 100 (0-100) /uL Sodium 144 (137-145) mmol/L Potassium 4.3 (3.4-5.1) mmol/L Chloride 113 H (98-107) mmol/L Carbon Dioxide 24 (22-32) mmol/L BUN 37 H (7-17) mg/dL Creatinine 0.62 (0.52-1.04) mg/dL Estimated GFR > 60.0 (>60) mL/min BUN/Creatinine Ratio 59.7 H (6-22) Glucose 179 H (80-110) mg/dL Lactate (0.7-2.1) mmol/L Calcium 9.8 (8.4-10.2) mg/dL Total Bilirubin 0.8 (0.2-1.3) mg/dL AST 22 (14-36) IU/L ALT 13 (<35) IU/L Alkaline Phosphatase 78 (38-126) U/L Ammonia (9-30) umol/L Total Creatine Kinase < 20 L (30-135) U/L CK-MB (CK-2) TNP CK-MB (CK-2) Rel Index TNP Troponin I 0.027 (0.01-0.034) ng/mL Total Protein 8.0 (6.3-8.2) g/dL Albumin 4.2 (3.5-5.0) g/dL Globulin 3.8 (1.7-4.1) g/dL Albumin/Globulin Ratio 1.1 (1.0-2.8) Lipase 45 (23-300) U/L Procalcitonin 0.05 (<0.5) ng/mL Urine RBC (0-5/HPF) Urine WBC (0-5/HPF) Ur Squamous Epith Cells (0-5/HPF) Amorphous Sediment Urine Bacteria (None) Ur Culture Indicated? Ethyl Alcohol < 10 ( - 10) mg/dL COVID-19 PCR (Negative) 08/18/20 08/18/20 08/18/20 Range/Units 08:30 08:30 09:00 WBC (4.5-11.0) X10^3/uL RBC (4.0-5.2) X10^6/uL Hgb (12.0-16.0) g/dL Hct (36-46) % MCV (80-100) fL MCH (26-34) PG MCHC (30-36) % RDW (11.6-14.8) % Plt Count (150-400) X10^3/uL Neut % (Auto) (50-75) % Lymph % (Auto) (25-40) % Barton % (Auto) (3-14) % Eos % (Auto) (2-4) % Baso % (Auto) (0-2) % Neut # (Auto) (8609-2611) /uL Lymph # (Auto) (3750-6883) /uL Barton # (Auto) (0-900) /uL Eos # (Auto) (0-450) /uL Baso # (Auto) (0-100) /uL Sodium (137-145) mmol/L Potassium (3.4-5.1) mmol/L Chloride (98-107) mmol/L Carbon Dioxide (22-32) mmol/L BUN (7-17) mg/dL Creatinine (0.52-1.04) mg/dL Estimated GFR (>60) mL/min BUN/Creatinine Ratio (6-22) Glucose (80-110) mg/dL Lactate 1.1 (0.7-2.1) mmol/L Calcium (8.4-10.2) mg/dL Total Bilirubin (0.2-1.3) mg/dL AST (14-36) IU/L ALT (<35) IU/L Alkaline Phosphatase (38-126) U/L Ammonia < 9 L (9-30) umol/L Total Creatine Kinase (30-135) U/L CK-MB (CK-2) CK-MB (CK-2) Rel Index Troponin I (0.01-0.034) ng/mL Total Protein (6.3-8.2) g/dL Albumin (3.5-5.0) g/dL Globulin (1.7-4.1) g/dL Albumin/Globulin Ratio (1.0-2.8) Lipase (23-300) U/L Procalcitonin (<0.5) ng/mL Urine RBC (0-5/HPF) Urine WBC (0-5/HPF) Ur Squamous Epith Cells (0-5/HPF) Amorphous Sediment Urine Bacteria (None) Ur Culture Indicated? Ethyl Alcohol ( - 10) mg/dL COVID-19 PCR Negative (Negative) 08/18/20 Range/Units 09:30 WBC (4.5-11.0) X10^3/uL RBC (4.0-5.2) X10^6/uL Hgb (12.0-16.0) g/dL Hct (36-46) % MCV (80-100) fL MCH (26-34) PG MCHC (30-36) % RDW (11.6-14.8) % Plt Count (150-400) X10^3/uL Neut % (Auto) (50-75) % Lymph % (Auto) (25-40) % Barton % (Auto) (3-14) % Eos % (Auto) (2-4) % Baso % (Auto) (0-2) % Neut # (Auto) (6440-2001) /uL Lymph # (Auto) (0298-9273) /uL Barton # (Auto) (0-900) /uL Eos # (Auto) (0-450) /uL Baso # (Auto) (0-100) /uL Sodium (137-145) mmol/L Potassium (3.4-5.1) mmol/L Chloride (98-107) mmol/L Carbon Dioxide (22-32) mmol/L BUN (7-17) mg/dL Creatinine (0.52-1.04) mg/dL Estimated GFR (>60) mL/min BUN/Creatinine Ratio (6-22) Glucose (80-110) mg/dL Lactate (0.7-2.1) mmol/L Calcium (8.4-10.2) mg/dL Total Bilirubin (0.2-1.3) mg/dL AST (14-36) IU/L ALT (<35) IU/L Alkaline Phosphatase (38-126) U/L Ammonia (9-30) umol/L Total Creatine Kinase (30-135) U/L CK-MB (CK-2) CK-MB (CK-2) Rel Index Troponin I (0.01-0.034) ng/mL Total Protein (6.3-8.2) g/dL Albumin (3.5-5.0) g/dL Globulin (1.7-4.1) g/dL Albumin/Globulin Ratio (1.0-2.8) Lipase (23-300) U/L Procalcitonin (<0.5) ng/mL Urine RBC 1-5/hpf (0-5/HPF) Urine WBC 0-1/hpf (0-5/HPF) Ur Squamous Epith Cells 0-1 /hpf (0-5/HPF) Amorphous Sediment 1+ Urine Bacteria None seen (None) Ur Culture Indicated? Cult not indicated Ethyl Alcohol ( - 10) mg/dL COVID-19 PCR (Negative) Urine Dip Bedside Urine Glucose Negative Bedside Urine Bilirubin - Negative Bedside Urine Ketone - Negative Urine Specific [place] 1.025 Bedside Urine Occult Blood +++ Bedside Urine pH 6 Bedside Urine Protein +/- 15 Bedside Urine Urobilinogen - Negative Bedside Urine Nitrite - Negative Bedside Urine Leukocytes - Negative Esterase Point of care testing: Urine Dip Bedside Urine Glucose Negative Bedside Urine Bilirubin - Negative Bedside Urine Ketone - Negative Urine Specific [place] 1.025 Bedside Urine Occult Blood +++ Bedside Urine pH 6 Bedside Urine Protein +/- 15 Bedside Urine Urobilinogen - Negative Bedside Urine Nitrite - Negative Bedside Urine Leukocytes - Negative Esterase Imaging Data CT scan - head: Radiologist's Impression: [address] [address] [address] Scan Report Signed Patient: Kalpana Alonso JMR#: [id number] : 1935cct:[id number] Age/Sex: 85 / FDate of Service: 08/18/20 Loc: ED Accession Number: [id number] Procedure: CT head/brain wo con Ordering Provider: Pedro Luis Calderón D.O. PROCEDURE: CT HEAD/BRAIN WO CON INDICATIONS: AMS TECHNIQUE: Noncontrast 4.5 mm thick angled axial sections acquired from the foramen magnum to the vertex, with coronal and sagittal reformats. For radiation dose reduction, the following was used: automated exposure control, adjustment of mA and/or kV according to patient size. COMPARISON: [facility], CT, CT BRAIN WO CON, 05/28/2016, 12:21. FINDINGS: Image quality: Excellent. CSF spaces: Basal cisterns are patent. No extra-axial fluid collections. The ventricles are symmetric in size and shape. Brain: No intracranial bleeds or masses. There is moderate cerebral volume loss for age, with resultant ventricular and sulcal prominence. This has progressed. There are moderate periventricular and deep white matter chronic small vessel ischemic changes. This has progressed. There is intracranial internal carotid artery atherosclerosis. Skull and face: Calvarium and visualized facial bones appear intact, without suspicious lesions. Sinuses: Visualized sinuses and mastoids are clear. IMPRESSION: 1. CT head without acute intracranial abnormalities or acute calvarial fractures. 2. Interval progression of moderate age-related senescent changes and sequela of chronic small vessel ischemic disease. Dictated by: David Monterroso M.D. on 08/18/2020 at 7:52 Approved by: David Monterroso M.D. on 08/18/2020 at 7:55 Chest x-ray: Radiologist's Impression: [address] [address] XRay Report Signed Patient: Kalpana Alonso JMR#: [id number] : 1935Acct:[id number] Age/Sex: 85 / FDate of Service: 08/18/20 Loc: ED Accession Number: [id number] Procedure: XR chest 1V Ordering Provider: Pedro Luis Calderón D.O. PROCEDURE: XR CHEST 1V INDICATIONS: eval for PNA TECHNIQUE: One view of the chest was acquired. COMPARISON: [facility], , CHEST 2VW, 02/23/2013, 15:39. FINDINGS: Surgical changes and devices: None. Lungs and pleura: Lung volumes are decreased with hypoventilatory changes. Curvilinear opacity of the right lung base likely representing atelectasis given eventration of the right hemidiaphragm. No focal consolidations. No pleural effusions or pneumothorax. Mediastinum: Mediastinal contours appear normal. Heart size is normal. Bones and chest wall: No suspicious bony lesions. Overlying soft tissues appear unremarkable. IMPRESSION: Hypoventilatory changes with curvilinear right basilar opacity favored to represent atelectasis. Superimposed, early airspace disease not excluded. Consider dedicated upright PA and lateral views of the chest to confirm when patient is able. Dictated by: David Monterroso M.D. on 08/18/2020 at 8:23 Approved by: David Monterroso M.D. on 08/18/2020 at 8:25 MDM Narrative Medical decision making narrative: Unsure the exact etiology of the patient's fever. The chest x-ray was inconclusive of pneumonia. She had a white count of 11.5 without a left shift. Her lactate and procalcitonin was negative. Does not appear to be her urine. I have low suspicion that the issue was the result of the wounds to her left lower extremity which are chronic. She was given vanc and Rocephin. I discussed the case with her primary provider who takes care of her at the nursing facility who was in contact with the patient's [id number] who apparently is not a relative. They asked that the patient be admitted for observation for IV antibiotics and if her symptoms did not improve then her primary provider would be happy to take her back for comfort measures. Patient is unable to tolerate anything by mouth. Discussed the case with Dr. snowden the hospitalist on today who will accept. Discharge Plan Departure Patient Disposition: Admitted as Observation Clinical Impression: Altered mental status, Fever
[2020-08-18 08:45] LABS: Add Manual Diff / Slide Review NO; Basophils Absolute Auto 100 /uL (0-100); Basophils Percent Auto 0.9 % (0-2); Eosinophils Absolute Auto 0 /uL (0-450); Eosinophils Percent Auto 0.1 % (2-4); Hematocrit 44.4 % (36-46); Hemoglobin 14.6 g/dL (12.0-16.0); Lymphocytes Absolute Auto 2400 /uL (1100-4500); Mean Corpuscular Hemoglobin 29.5 PG (26-34); Mean Corpuscular Volume 89.6 fL (80-100); Monocytes Absolute Auto 700 /uL (0-900); Monocytes Percent Auto 5.7 % (3-14); Neutrophils Absolute Auto 8400 /uL (1500-7000); Neutrophils Percent Auto 72.3 % (50-75); Platelet Count 256 X10^3/uL (150-400); Red Blood Cell Count 4.96 X10^6/uL (4.0-5.2); Red Cell Distribution Width 14.4 % (11.6-14.8); White Blood Cell Count 11.5 X10^3/uL (4.5-11.0)
[2020-08-18 08:55] LABS: Alanine Aminotransferase 13 IU/L (<35); Albumin 4.2 g/dL (3.5-5.0); Albumin Globulin Ratio 1.1 (1.0-2.8); Alkaline Phosphatase 78 U/L (38-126); Aspartate Aminotransferase 22 IU/L (14-36); BUN Creatinine Ratio 59.7 (6-22); Bilirubin Total 0.8 mg/dL (0.2-1.3); Blood Urea Nitrogen 37 mg/dL (7-17); Calcium 9.8 mg/dL (8.4-10.2); Carbon Dioxide 24 mmol/L (22-32); Chloride 113 mmol/L (98-107); Creatine Kinase < 20 U/L (30-135); Estimated Glomerular Filt Rate > 60.0 mL/min (>60); Ethanol (ETOH) < 10 mg/dL; Globulin 3.8 g/dL (1.7-4.1); Glucose 179 mg/dL (80-110); HEMOLYSIS < 15 (0-50); Lactate (Lactic Acid) 1.1 mmol/L (0.7-2.1); Lipase 45 U/L (23-300); Potassium 4.3 mmol/L (3.4-5.1); Sodium 144 mmol/L (137-145)
[2020-08-18 09:05] LABS: Troponin I 0.027 ng/mL (0.01-0.034)
[2020-08-18 09:09] LABS: Procalcitonin 0.05 ng/mL (<0.5)
[2020-08-18] MEDS: SODIUM CHLORIDE 0.9% 1,000 ML 125 ML IV (09:09)
[2020-08-18 09:16] LABS: Ammonia (NH3) < 9 umol/L (9-30)
[2020-08-18 09:23] LABS: COVID19 -Nasal RAPID Negative (Negative)
[2020-08-18 09:54] LABS: Bacteria Urine None Seen
[2020-08-18 10:01] LABS: Amorphous Sediment Urine 1+; Culture Indicated Urine Cult Not Indicated; RBC Urine 1-5/HPF (0-5/HPF); Squamous Epithelial Cell Urine 0-1 /HPF (0-5/HPF); WBC Urine 0-1/HPF (0-5/HPF)
[2020-08-18] MEDS: CEFTRIAXONE 1 GM/50 ML FROZ.PIGGY IV (10:16)
--- NOTE | 2020-08-18 10:26 | PC.NURSE ---
patient arrived via ems. Non verbal, unable to communicate. Mumbles words occasionally. Open eyes to pain and any repositioning.
[2020-08-18] MEDS: VANCOMYCIN 1,000 MG/200 ML PIGGYBACK 200 MG IV (10:47)
--- NOTE | 2020-08-18 11:50 | PC.NURSE ---
Sherrill OATES assisted with cath
[2020-08-18] MEDS: ENOXAPARIN 40 MG/0.4 ML SYRINGE SUBCUT (14:31)
[2020-08-18] MEDS: PIPERACILLIN-TAZO 3.375 GM/50 ML FROZ.PIGGY IV ×2 (14:31→20:10)
--- NOTE | 2020-08-18 14:36 | P.HP_ITS ---
History of Present Illness History of Present Illness Date Patient Seen: 08/18/20 Time Patient Seen: 12:45 Chief complaint: Decreased LOC, Fever Narrative: Patient is an 85-year-old female. Is a DNR/DNI. Lives at a nursing facility across the street was sent over by EMS for evaluation of altered mental status and fevers. While in the ER to assess patient, patient was unarousable, Ronald OATES and attempted to also rouse patient without success. Patient when pinc hed or substernal rub was applied would not open her eyes but only slightly grimaced changing her facial expression without awaking. Blood pressure was hypotensive 88/58, heart rate 81, respirations 17. Patients physical exam was unremarkable. The ER reported to that the patient is a valdivia of the formerly [facility], [facility], and that her primary care through [address] Stallworth contacted the [facility] sales representative church furniture and it was agreed upon that the patient should be brought to the emergency room. Dr. irizarry and requested that the patient receive antibiotics and fluids to see if patient responds within 24 hours if not improving may consider hospice admit. Report was noted to said that patient's normal baseline was active walking and talking around her facility independently, and only deficit was that of her dementia. It should be noted that among patients medical history is a history of seizures, but Dr. Stallworth states that the patient is on anti seizure medication for bipolar disorder and has no known history of seizures. Patient unable to provide any HPI. All history was provided by EMS which they obtained by report from the staff. Apparently at baseline the patient has a history of dementia. I am unsure is exactly how high functioning that she is with regard to this diagnosis although it was reported that her mental status today is different from her baseline. Reportedly that the fevers occurred this morning. She did receive Tylenol prior to arrival. The reports that she has ?crackles? in the her left lungs. Patient History Medical History Acute kidney failure, unspecified (Acute) Bipolar disorder (Chronic) Constipation (Acute) Dementia (Chronic) Dysphagia (Acute) Heart disease, unspecified (Acute) Muscle weakness (Acute) Overactive bladder (Acute) Rhabdomyolysis (Acute) Seizures (Acute) Sepsis (Acute) Unspecified dementia with behavioral disturbance (Acute) Surgical History History of removal of both ovaries (Acute) Hx of hernia repair (Acute) Status post rotator cuff repair Family & Social History Family History Father Essential hypertension Mother Diabetes mellitus Social History: household members none Tobacco & Substance use: Smoking Status Never smoker alcohol intake never Substance Use Type does not use Meds Home Medications and Allergies Home Medications Medication Instructions Recorded Confirmed Type acetaminophen 325 mg PO Q4H PRN #0 11/18/16 08/18/20 History diphenhydramine HCl [Benadryl 25 mg PO Q4HP PRN #0 11/18/16 08/18/20 History Allergy] quetiapine [Seroquel] 300 mg PO HS #30 tab 10/16/17 08/18/20 Rx divalproex 500 mg PO BEDTIME 12/14/19 08/18/20 History multivitamin with minerals 1 tab PO QAM 12/14/19 08/18/20 History nystatin 1 applic TOPICAL PRN PRN 12/14/19 08/18/20 History quetiapine 100 mg PO QAM 12/14/19 08/18/20 History sodium chloride [Saline Mist] 2 spray INTRANASAL BID 12/14/19 08/18/20 History aspirin 81 mg PO QAM 08/18/20 08/18/20 History citalopram [Celexa] 20 mg PO QAM 08/18/20 08/18/20 History diphenhydramine-zinc acetate 1 applic TOPICAL TID 08/18/20 08/18/20 History lanolin 1 applic TOPICAL BID 08/18/20 08/18/20 History loratadine 10 mg PO QAM 08/18/20 08/18/20 History Allergies Allergy/AdvReac Type Severity Reaction Status Date / Time hydrocodone Allergy not known Verified 08/18/20 08:42 Sulfa (Sulfonamide Allergy Hives Verified 08/18/20 08:42 Antibiotics) Iodine and Iodide Containing AdvReac Intermediate Verified 08/18/20 08:42 Produc aripiprazole AdvReac Verified 08/18/20 08:42 niacin AdvReac Verified 08/18/20 08:42 procaine AdvReac Verified 08/18/20 08:42 tramadol AdvReac Verified 08/18/20 08:42 Review of Systems Review of Systems ROS: Yes unobtainable due to mental status (Patient was nonresponsive ) Exam Vital Signs (past 8 hours): - 08/18/20 08:37 08/18/20 09:06 08/18/20 09:07 Temperature 98.0 F Pulse Rate 101 H 100 H 99 H Respiratory Rate 18 21 21 Blood Pressure 112/60 108/63 Pulse Oximetry 96 93 93 08/18/20 09:10 08/18/20 09:20 08/18/20 09:30 Temperature Pulse Rate 101 H 100 H 99 H Respiratory Rate 20 20 20 Blood Pressure 114/63 109/65 Pulse Oximetry 93 93 93 08/18/20 09:40 08/18/20 09:50 08/18/20 10:00 Temperature Pulse Rate 101 H 97 H 95 H Respiratory Rate 19 20 20 Blood Pressure 120/70 114/65 122/66 Pulse Oximetry 93 93 93 08/18/20 10:10 08/18/20 10:20 08/18/20 10:30 Temperature Pulse Rate 94 H 93 H 92 H Respiratory Rate 20 19 19 Blood Pressure 114/65 119/66 108/60 Pulse Oximetry 93 93 93 08/18/20 10:40 08/18/20 10:50 08/18/20 10:59 Temperature Pulse Rate 91 H 90 90 Respiratory Rate 19 19 18 Blood Pressure 90/56 L 89/51 L 103/70 Pulse Oximetry 93 93 93 08/18/20 11:00 08/18/20 11:10 08/18/20 11:20 Temperature Pulse Rate 88 86 85 Respiratory Rate 19 17 17 Blood Pressure 116/68 101/62 92/56 L Pulse Oximetry 93 93 92 08/18/20 11:30 08/18/20 11:31 08/18/20 11:40 Temperature Pulse Rate 84 84 84 Respiratory Rate 16 17 19 Blood Pressure 90/54 L 104/63 Pulse Oximetry 93 93 92 08/18/20 11:50 08/18/20 12:00 08/18/20 12:10 Temperature Pulse Rate 82 80 80 Respiratory Rate 17 16 17 Blood Pressure 97/61 92/55 L 89/57 L Pulse Oximetry 93 92 93 08/18/20 12:20 08/18/20 12:30 08/18/20 12:31 Temperature Pulse Rate 82 81 82 Respiratory Rate 17 17 17 Blood Pressure 93/57 L 85/55 L 88/58 L Pulse Oximetry 92 08/18/20 12:40 Temperature Pulse Rate 81 Respiratory Rate 16 Blood Pressure 103/61 Pulse Oximetry Oxygen Delivery Method Room Air Narrative Exam Narrative: General: Elderly female, appears appropriate age, well nourshie d, moderately well groomed, and only slightly stirs in response to painful stimuli. HEENT: Unable to assess. External inspection of the ears and nose showed no scars, lesions, or masses. Lips, teeth, and gums unable to asses. NECK: Supple and symmetric. There was no thyroid enlargement, and no tenderness, or masses were felt. CHEST: Normal AP diameter and normal contour LUNGS: Auscultation of the lungs revealed no wheezes, rhonchi, or rales. CARDIOVASCULAR: There was a regular rate and rhythm without any murmurs, gallops, rubs. Peripheral pulses were 2+ and symmetric. ABDOMEN: Soft and nontender with normal bowel sounds. No ascites was noted. MUSCULOSKELETAL: There was no tenderness or effusions noted. EXTREMITIES: No cyanosis, clubbing or edema. NEUROLOGIC: Patient Unresponsive GCS 10, QSOFA 3 Points High Risk Objective Labs Result Diagrams: 08/18/20 08:30 08/18/20 08:30 Labs: Laboratory Results - last 24 hr 08/18/20 08/18/20 08/18/20 08:30 08:30 08:30 WBC 11.5 H RBC 4.96 Hgb 14.6 Hct 44.4 MCV 89.6 MCH 29.5 MCHC 33.0 RDW 14.4 Plt Count 256 Neut % (Auto) 72.3 Lymph % (Auto) 21.0 L [place] % (Auto) 5.7 Eos % (Auto) 0.1 L Baso % (Auto) 0.9 Neut # (Auto) 8400 H Lymph # (Auto) 2400 [place] # (Auto) 700 Eos # (Auto) 0 Baso # (Auto) 100 Sodium 144 Potassium 4.3 Chloride 113 H Carbon Dioxide 24 BUN 37 H Creatinine 0.62 Estimated GFR > 60.0 BUN/Creatinine Ratio 59.7 H Glucose 179 H Lactate Calcium 9.8 Total Bilirubin 0.8 AST 22 ALT 13 Alkaline Phosphatase 78 Ammonia Total Creatine Kinase < 20 L CK-MB (CK-2) TNP CK-MB (CK-2) Rel Index TNP Troponin I 0.027 Total Protein 8.0 Albumin 4.2 Globulin 3.8 Albumin/Globulin Ratio 1.1 Lipase 45 Procalcitonin 0.05 Urine RBC Urine WBC Ur Squamous Epith Cells Amorphous Sediment Urine Bacteria Ur Culture Indicated? Ethyl Alcohol < 10 COVID-19 PCR 08/18/20 08/18/20 08/18/20 08:30 08:30 09:00 WBC RBC Hgb Hct MCV MCH MCHC RDW Plt Count Neut % (Auto) Lymph % (Auto) [place] % (Auto) Eos % (Auto) Baso % (Auto) Neut # (Auto) Lymph # (Auto) [place] # (Auto) Eos # (Auto) Baso # (Auto) Sodium Potassium Chloride Carbon Dioxide BUN Creatinine Estimated GFR BUN/Creatinine Ratio Glucose Lactate 1.1 Calcium Total Bilirubin AST ALT Alkaline Phosphatase Ammonia < 9 L Total Creatine Kinase CK-MB (CK-2) CK-MB (CK-2) Rel Index Troponin I Total Protein Albumin Globulin Albumin/Globulin Ratio Lipase Procalcitonin Urine RBC Urine WBC Ur Squamous Epith Cells Amorphous Sediment Urine Bacteria Ur Culture Indicated? Ethyl Alcohol COVID-19 PCR Negative 08/18/20 09:30 WBC RBC Hgb Hct MCV MCH MCHC RDW Plt Count Neut % (Auto) Lymph % (Auto) [place] % (Auto) Eos % (Auto) Baso % (Auto) Neut # (Auto) Lymph # (Auto) [place] # (Auto) Eos # (Auto) Baso # (Auto) Sodium Potassium Chloride Carbon Dioxide BUN Creatinine Estimated GFR BUN/Creatinine Ratio Glucose Lactate Calcium Total Bilirubin AST ALT Alkaline Phosphatase Ammonia Total Creatine Kinase CK-MB (CK-2) CK-MB (CK-2) Rel Index Troponin I Total Protein Albumin Globulin Albumin/Globulin Ratio Lipase Procalcitonin Urine RBC 1-5/hpf Urine WBC 0-1/hpf Ur Squamous Epith Cells 0-1 /hpf Amorphous Sediment 1+ Urine Bacteria None seen Ur Culture Indicated? Cult not indicated Ethyl Alcohol COVID-19 PCR Assessment & Plan Assessment & Plan narrative: 1.Sepsis Acute on admission Sepsis Bundle -Ceftriaxone 1 gram (ER), Vancomycin 1,000mg(ER), piperacillin 3.375 started on floor 08/18/2020 -LR 1 liter Started on Floor /hr. bolus & 1 liter NS -CXR-Hypoventilatory changes with curvilinear right basilar opacity favored to represent. Repeat 2 view chest xray tomorrow 08/19/2020 atelectasis. Superimposed, early airspace disease not excluded. Consider dedicated upright PA and lateral views of the chest to confirm when patient is able. -CHead CT 1. CT head without acute intracranial abnormalities or acute calvarial fractures.2. Interval progression of moderate age-related senescent changes and sequela of chronic small vessel ischemic disease. 2. Acute Metabolic encephalopathy Acute on admission Patient unresponsive at the time of admissiom WBC 11.5, 101 at admission, GCS 10, Qsofa 3, Procalc-Neg, chl 113, BUN 37, bun/court clerk 59.7, Lactate -neg Blood cultures x 2, urine culture ordered, Mag and AM labs tomorrow. 3.Dementia with behavioral disturbance, chronic condition, present on admission, stable - appears to be at her neurological baseline, no evidence of acute encephalopathy - no behavioral disturbance 4.Physical debility and deconditioning, chronic, Acute on admission -On admission pt was unresponsive to painful stimuli. - At baseline patient is wheelchair bound and requires full assist - Turn patient Q2H -PT/OT/and dietary consult 5. Bipolar 1 disorder w/ features of depression, chronic condition, not evident on admission - H/O of psychotic symptoms. No evidence of psychosis at time of evaluation. - Continue POSTBED STITCHER regimen of quetiapine 100 mg QAM and 300 mg QHS, citalopram 20 mg daily, and divalproex 500 mg daily. No history of seizures per review of records. Likely the patient is taking divalproex for bipolar disorder. 6. Overactive bladder, chronic condition -resume PT regimen of oxybutynin Code Status- DNR / comfort care status/DNI. POLST form is present, Patient has a legal guardian, Laurel Sierra, Pt is a valdivia to of the formerly [facility], [facility]. Medication list from [facility] reviewed. Medications reconciled accordingly. VTE prophylaxis with SCD. enxaparin Fall Risk Diet: Heart Healthy Patient was admitted to hospital due to altered mental status, fever of unknown origin. Resulting in sepsis and acute metabolic encephalopathy leading to loss of consciousness. Patient failed outpatient management.
[2020-08-18] MEDS: LACTATED RINGERS 1,000 ML 950 ML IV (15:03)
[2020-08-18 17:35] LABS: Magnesium 2.1 mg/dL (1.6-2.3)
--- NOTE | 2020-08-18 18:37 | PC.NURSE ---
Pt's guardian is Laurel Sierra phone is [phone]. She has to be contacted when patient is set to discharge as she has to get hospitalization details for a report she will be submitting to the court. MD Thomas advised.
[2020-08-18] MEDS: DIVALPROEX DR 250 MG TABLET 500 MG PO (20:06)
[2020-08-18] MEDS: QUETIAPINE 100 MG TABLET 300 MG PO (20:07)
--- NOTE | 2020-08-18 21:42 | PC.NURSE ---
Pt is A and O to self only. VSS. Afebrile. Pt responsive to some nursing questions but did not answer many. Pt ate several bites of her evening meal and took her medications crushed in chocolate pudding. She very clearly was able to state that she was full and did not want more bites and even stated clearly You eat it. Wound on L foot is dressed, c/d/i. Pt is incontinent and has had two wet briefs this shift. She has difficulty moving herself in bed and is a total assist. She is able to sleep.
[2020-08-19] VITALS (7 sets, daily range): BP systolic 107–140; BP diastolic 63–85; PULSE 70–79; RESP 16–18; TEMP 36.1–36.9; O2SAT 94–98
--- NOTE | 2020-08-19 | DI.RAD.S_ITS ---
PROCEDURE: XR CHEST 2V INDICATIONS: sepsis TECHNIQUE: 2 views of the chest were acquired. COMPARISON: [facility], CR, XR CHEST 1V, 08/18/2020, 8:44. FINDINGS: Surgical changes and devices: None. Lungs and pleura: There is right lower lobe patchy airspace opacity. Minimal left basilar atelectasis. No pleural effusions or pneumothorax. Mediastinum: Mediastinal contours are stable. Heart size is normal. Bones and chest wall: No suspicious bony abnormalities. Soft tissues appear unremarkable. IMPRESSION: Right lower lobe airspace disease/pneumonia. Recommend follow up chest radiograph 4-6 weeks after treatment to document resolution of findings and/or return to baseline examination. Dictated by: David Monterroso M.D. on 08/19/2020 at 8:06 Approved by: David Monterroso M.D. on 08/19/2020 at 8:08
[2020-08-19] MEDS: PIPERACILLIN-TAZO 3.375 GM/50 ML FROZ.PIGGY IV (01:53)
[2020-08-19 02:22] LABS: Acinetobacter baumannii Not Detected (Not Detect); Enterobacteriaceae species Not Detected (Not Detect); Enterococcus species Not Detected (Not Detect); Listeria monocytogenes Not Detected (Not Detect); Methicillin-resistant gene Not Detected (Not Detect); Staphylococcus species Detected (Not Detect); Streptococcus agalactiae (Gr B Not Detected (Not Detect); Streptococcus pneumonia Not Detected (Not Detect); Streptococcus pyogenes (Gr A) Not Detected (Not Detect); Streptococcus species Not Detected (Not Detect)
[2020-08-19 02:23] LABS: Candida albicans Not Detected (Not Detect); Candida glabrata Not Detected (Not Detect); Candida krusei Not Detected (Not Detect); Candida parapsilosis Not Detected (Not Detect); Candida tropicalis Not Detected (Not Detect); E. coli Not Detected (Not Detect); Enterobacter cloacae complex Not Detected (Not Detect); Haemophilus influenzae Not Detected (Not Detect); Neisseria meningitidis Not Detected (Not Detect); Proteus species Not Detected (Not Detect); Pseudomonas aeruginosa Not Detected (Not Detect); Serratia marcescens Not Detected (Not Detect)
[2020-08-19] MEDS: VANCOMYCIN 1,000 MG/200 ML PIGGYBACK 200 MG IV (03:47)
[2020-08-19 05:34] LABS: Add Manual Diff / Slide Review NO; Basophils Absolute Auto 100 /uL (0-100); Basophils Percent Auto 0.8 % (0-2); Eosinophils Absolute Auto 100 /uL (0-450); Eosinophils Percent Auto 0.8 % (2-4); Hematocrit 34.3 % (36-46); Hemoglobin 11.2 g/dL (12.0-16.0); Lymphocytes Absolute Auto 2500 /uL (1100-4500); Lymphocytes Percent Auto 29.2 % (25-40); Mean Corpuscular HGB Conc 32.7 % (30-36); Mean Corpuscular Hemoglobin 29.6 PG (26-34); Mean Corpuscular Volume 90.5 fL (80-100); Monocytes Absolute Auto 400 /uL (0-900); Monocytes Percent Auto 5.1 % (3-14); Neutrophils Absolute Auto 5400 /uL (1500-7000); Neutrophils Percent Auto 64.1 % (50-75); Platelet Count 196 X10^3/uL (150-400); Red Blood Cell Count 3.79 X10^6/uL (4.0-5.2); White Blood Cell Count 8.5 X10^3/uL (4.5-11.0)
[2020-08-19 05:43] LABS: BUN Creatinine Ratio 52.6 (6-22); Blood Urea Nitrogen 30 mg/dL (7-17); Calcium 8.8 mg/dL (8.4-10.2); Carbon Dioxide 27 mmol/L (22-32); Chloride 112 mmol/L (98-107); Estimated Glomerular Filt Rate > 60.0 mL/min (>60); Glucose 140 mg/dL (80-110); HEMOLYSIS < 15 (0-50); Potassium 3.8 mmol/L (3.4-5.1); Sodium 142 mmol/L (137-145)
[2020-08-19 06:00] LABS: Procalcitonin < 0.05 ng/mL (<0.5)
--- NOTE | 2020-08-19 09:23 | CM.DANOTE ---
DCP: Case received, EMR reviewed. Checked on patient. She was being fed by caregiver in her room. She was awake, alert, answering basic questions. Patient has dementia. She resides at [facility], was able to get in touch with Saskia, director at [facility], for further information regarding baseline status. DCP assessment completed with information currently available. Patient is an 85 year old female who admitted yesterday morning to the care of the hospitalist team. PCP: Dr. Loera/Basim Payer: confirmed: Medicare/Medicaid. Patient came to the hospital via ambulance secondary to fever, decreased LOC, concerns of aspiration. Patient has history of dementia, and resides at [facility]. She has a guardian named Laurel Sierra. Patient is DNR/DNI. Her current diagnosis is sepsis, and nurse, Cristofer, indicated that her blood cultures came back positive for staph. Dr. Stallworth sent patient over for IV ABO to see if she improves. Other option is having patient return on hospice. Saskai indicated that patient has been bed bound for quite some time, and is total care. She was originally at [facility], before she became short term. Saskia stated that they can accept her back, if she came before noon today, they would not need to come out to assess, but after that, they would. P: DCP to follow. Plan is to return to [facility] when stable. Guardian will need to be updated at discharge. Reva Jimenez RN/Finance Lecturer
[2020-08-19] MEDS: ASPIRIN EC 81 MG TABLET PO (09:33)
[2020-08-19] MEDS: CITALOPRAM 10 MG TABLET 20 MG PO (09:33)
[2020-08-19] MEDS: ENOXAPARIN 40 MG/0.4 ML SYRINGE SUBCUT (09:33)
[2020-08-19] MEDS: QUETIAPINE 100 MG TABLET PO (09:33)
[2020-08-19] MEDS: SODIUM CHLORIDE 0.9% FLUSH 10 ML IV ×2 (09:34→20:06)
--- NOTE | 2020-08-19 10:29 | PT-IP ANOTE ---
Discussed pt in interdisciplinary team rounds. Hospitalist expressed doubt that this pt was independently mobile at baseline. Per conversation with nurse at [facility], pt has remained in bed per her request since March 2020. She was independent with feeding up until ~1.5 months ago but she now requires assist. Hospitalist agreed with PT assessment that therapy is not warranted. Will discharge order.
--- NOTE | 2020-08-19 13:52 | P.PN_ITS ---
Subjective Subjective Date Patient Seen: 08/19/20 Time Patient Seen: 08:00 Interval history: Patient is an 85-year-old female. Is a DNR/DNI. Lives at a nursing facility across the street was sent over by EMS for evaluation of altered mental status and fevers. Patient arrived obtunded and hypotensive 88/58, heart rate 81, respirations 17. Two positive blood cultures today revealed Staphylococcus aureus bacteremia. Patient has been bed-bound in a home facility for an extended period of time, and has a [id number] Tomasnilsa sierra phone number [phone], and patient's primary care is Dr. Stallworth. Upon admission into the emergency room who stated that patient was to receive IV antibiotics and fluids for approximately 24 hour period to determine if she would improve and/or comfort measures. Upon reviewing culture results had a phone consult with Dr. Stallworth and Dr. snowden to discuss the patient's case and then contacted Tomas sierra [id number] to discuss her wishes for the patient. Provided carbide powder processor with the standard recommended medical treatment and screening for Staph aureus bacteremia, and after careful consideration of multiple options for care. Ms. sierra determined that if Linzolid oral antibiotic is appropriate based on culture results we will transition patient off IV antibiotics on to oral medication and she will be discharged back to her home facility. And today we completed a referral for hospice consult as well. Today patient was awake and alert and able to answer with simple one word answers to occasional questions, resting in bed denies any pain or discomfort, patients orientation is limited to person and place. She is in no distress, and appears well looking and greatly improved from her obtunded presentation yesterday. Also changed to vancomycin order to a per pharmacy order today. Exam Vital Signs (past 8 hours): - 08/19/20 06:00 08/19/20 08:06 08/19/20 09:25 Temperature 96.9 F L 97.3 F L Pulse Rate 70 70 72 Respiratory Rate 16 16 17 Blood Pressure 140/85 132/73 Pulse Oximetry 98 98 98 08/19/20 12:16 Temperature 97.4 F L Pulse Rate 73 Respiratory Rate 17 Blood Pressure 107/63 Pulse Oximetry 95 Oxygen Delivery Method Room Air Oxygen Flow Rate 0 Narrative Exam Narrative: GENERAL APPEARANCE: Elderly female, lying in hospital bed, resting comfortably, in no apparent distress. SKIN: Left lateral foot med ulceration, right lateral foot ulceration over epicondyle, small, both with some healing present, no erythemia, inflammation, tenderness or warmth inflammtion . HEENT: The sclerae were anicteric and conjunctivae were pink and moist. Extraocular movements were intact and pupils were equal, round with normal accommodation. External inspection of the ears and nose showed no scars, lesions, or masses. Lips, teeth, and gums showed normal mucosa. The oral mucosa, hard and soft palate, tongue and posterior pharynx were unremarkable. Bilateral nares with epistaxis. NECK: Supple and symmetric. There was no thyroid enlargement, and no tenderness, or masses were felt. CHEST: Normal AP diameter and normal contour without any kyphoscoliosis. LUNGS: Auscultation of the lungs revealed no wheezes, rhonchi, or rales. CARDIOVASCULAR: There was a regular rate and rhythm without any murmurs, gallops, rubs. Peripheral pulses were 2+ and symmetric. ABDOMEN: Soft and nontender with normal bowel sounds. No ascites was noted. MUSCULOSKELETAL: There was no tenderness or effusions noted. Muscle strength and tone were normal. EXTREMITIES: No cyanosis, clubbing or edema. NEUROLOGIC: Alert and oriented to place and person, minimal communication, non- ambulatory, and unable to participate in her own care. This reported by her appointee to be her base-line. Objective Labs Result Diagrams: 08/19/20 04:55 08/19/20 04:55 Labs: Laboratory Results - last 24 hr 08/18/20 08/18/20 08/19/20 08:30 16:48 04:55 WBC RBC Hgb Hct MCV MCH MCHC RDW Plt Count Neut % (Auto) Lymph % (Auto) Crosby % (Auto) Eos % (Auto) Baso % (Auto) Neut # (Auto) Lymph # (Auto) [place] # (Auto) Eos # (Auto) Baso # (Auto) Sodium 142 Potassium 3.8 Chloride 112 H Carbon Dioxide 27 BUN 30 H Creatinine 0.57 Estimated GFR > 60.0 BUN/Creatinine Ratio 52.6 H Glucose 140 H Calcium 8.8 Magnesium 2.1 Procalcitonin A. baumannii (PCR) Not detected Yvette albicans (PCR) Not detected C. glabrata (PCR) Not detected C. krusei (PCR) Not detected C. parapsilosis (PCR) Not detected C. tropicalis (PCR) Not detected Enterobacteriac sp PCR Not detected E. cloacae complex PCR Not detected Enterococcus sp PCR Not detected E. coli (PCR) Not detected H. influenzae (PCR) Not detected Klebsiella oxytoca PCR Not detected Klebsiella pneumoniae Not detected List. monocytogenes PCR Not detected N. meningitidis (PCR) Not detected Proteus species (PCR) Not detected Serratia marcescens PCR Not detected Staphylococcus sp PCR Detected H Staph aureus (PCR) Not detected mecA-Methicil Res Gene Not detected Streptococcus sp PCR Not detected Group A Strep (PCR) Not detected Strep agalactiae (PCR) Not detected Strep pneumoniae (PCR) Not detected P. aeruginosa (PCR) Not detected Miriam/B-Vanco Res Genes Not Reportable KPC-Carbap Res Gene PCR Not Reportable 08/19/20 08/19/20 04:55 04:55 WBC 8.5 RBC 3.79 L Hgb 11.2 L Hct 34.3 L MCV 90.5 MCH 29.6 MCHC 32.7 RDW 14.0 Plt Count 196 Neut % (Auto) 64.1 Lymph % (Auto) 29.2 Crosby % (Auto) 5.1 Eos % (Auto) 0.8 L Baso % (Auto) 0.8 Neut # (Auto) 5400 Lymph # (Auto) 2500 Crosby # (Auto) 400 Eos # (Auto) 100 Baso # (Auto) 100 Sodium Potassium Chloride Carbon Dioxide BUN Creatinine Estimated GFR BUN/Creatinine Ratio Glucose Calcium Magnesium Procalcitonin < 0.05 A. baumannii (PCR) Yvette albicans (PCR) C. glabrata (PCR) C. krusei (PCR) C. parapsilosis (PCR) C. tropicalis (PCR) Enterobacteriac sp PCR E. cloacae complex PCR Enterococcus sp PCR E. coli (PCR) H. influenzae (PCR) Klebsiella oxytoca PCR Klebsiella pneumoniae List. monocytogenes PCR N. meningitidis (PCR) Proteus species (PCR) Serratia marcescens PCR Staphylococcus sp PCR Staph aureus (PCR) mecA-Methicil Res Gene Streptococcus sp PCR Group A Strep (PCR) Strep agalactiae (PCR) Strep pneumoniae (PCR) P. aeruginosa (PCR) Miriam/B-Vanco Res Genes KPC-Carbap Res Gene PCR Assessment & Plan Assessment & Plan narrative: 1.Staphylococcus aureus bacteremia -Based on 2 positive blood cultures -After consulting with patient's primary Dr. Stallworth and patient's appointee Tomas bello we will wait for further cultures to come back and determine if Linzolid oral antibiotic is appropriate for outpatient use. Then we will transition patient off IV medications and transfer to her facility. Ms. Sierra verbalized that she did not consent to allow the patient to have a PICC line placed for 6 or more weeks IV antibiotic therapy which would require the patient to go to a prison facility, nor did she wish to proceed with an echo TTE or an echo transesophageal. -Patient concurrently to continue on vancomycin per pharmacy protocol until sensitivity results back then transition onto oral meds and return patient to her facility for hospice care. -Focus on patient comfort measures per Ms. Sierra request. Hospice Consult ordered per Ms. Sierra request. 2. Acute Metabolic encephalopathy Acute on admission Patient unresponsive at the time of admissiom WBC 11.5, 88/58, 81, 16, 101.0, 92% at admission, GCS 10, Qsofa 3 Blood cultures x 2 positive Staph aureus, waiting for sensitivity. 3.Dementia, chronic condition, not on admission, stable -patient was obtunded on admission. - appears to be at her neurological baseline today - no behavioral disturbance -Continue quetiapine 100mg Qam/300mg QHS 4.Physical debility and deconditioning, chronic, Acute on admission -On admission pt was unresponsive to painful stimuli. Obtunded - At baseline patient is bed bound and requires full assist - Turn patient Q2H -bedside swallow test and dietary consult 5. Bipolar 1 disorder w/ features of depression, chronic condition, not evident on admission - H/O of psychotic symptoms. No evidence of psychosis at time of evaluation. 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 No history of seizures per review of records. Likely the patient is taking divalproex for bipolar disorder. Scores SOFA Platelets: < 100
--- NOTE | 2020-08-19 16:23 | CM.DPC ---
DCP Cont: Spoke to Martha, nurse practitioner, who had spoken to guardian, Laurel Sierra. She would like hospice informational visit. Went ahead and spoke to Gabriella in [facility] at [facility] , and updated her letting her know that patient resides at [facility], and they may try short term ABO here, no PICC line per patient's wishes. She is DNR/DNI. Faxed over face sheet, H&P, labs, med list, over to [facility] . Gabriella will review tomorrow. P: DCP to continue to follow. Plan is for patient to go back to [facility], and hospice info visit with guardian. Reva Jimenez RN/Technology Teacher
[2020-08-19] MEDS: ACETAMINOPHEN 325 MG TABLET PO (20:05)
[2020-08-19] MEDS: DIVALPROEX DR 250 MG TABLET 500 MG PO (20:06)
[2020-08-19] MEDS: QUETIAPINE 100 MG TABLET 300 MG PO (20:06)
[2020-08-20] VITALS (7 sets, daily range): BP systolic 102–125; BP diastolic 50–70; PULSE 64–78; RESP 16–18; TEMP 36.2–36.9; O2SAT 95–98
--- NOTE | 2020-08-20 00:33 | PC.NURSE ---
DISABILITY COUNSELOR note: used wayne bed to turn patient 3 degrees to right side with pillow under right side to take pressure off of backside.
--- NOTE | 2020-08-20 02:36 | PC.NURSE ---
Patient is confused; will ask questions but mostly not responding to questions asked and is not always understandable. Breath sounds diminished but CTA with RA sat of 97%; on continuous oximetry per MD order. HRR. BT hypoactive; incontinent of small amount of stool. Incontinent of urine. Unable to turn herself so is being repositioned q2h. Has reddened coccyx with superficial skin sloughed off small area to left of coccyx. Has contracture of right hand. Foot drop noted as well. FLACC score is 0. Wearing bilateral calf SCD's. On contact isolation for possible MRSA bacteremia. Fall risk score is high and bed alarm is activated.
[2020-08-20] MEDS: VANCOMYCIN 1,250 MG/250 ML PIGGYBACK 250 MG IV (03:52)
[2020-08-20] MEDS: SODIUM CHLORIDE 0.9% FLUSH 10 ML IV ×3 (03:53→20:29)
[2020-08-20 06:40] LABS: Hematocrit 33.9 % (36-46); Hemoglobin 11.1 g/dL (12.0-16.0); Mean Corpuscular HGB Conc 32.6 % (30-36); Mean Corpuscular Hemoglobin 29.7 PG (26-34); Platelet Count 188 X10^3/uL (150-400); Red Blood Cell Count 3.73 X10^6/uL (4.0-5.2); White Blood Cell Count 7.8 X10^3/uL (4.5-11.0)
[2020-08-20 06:42] LABS: Add Manual Diff / Slide Review YES
[2020-08-20 06:44] LABS: Blood Urea Nitrogen 24 mg/dL (7-17); Calcium 8.7 mg/dL (8.4-10.2); Carbon Dioxide 27 mmol/L (22-32); Chloride 108 mmol/L (98-107); Estimated Glomerular Filt Rate > 60.0 mL/min (>60); Glucose 111 mg/dL (80-110); HEMOLYSIS < 15 (0-50); Magnesium 2.1 mg/dL (1.6-2.3); Potassium 4.1 mmol/L (3.4-5.1); Sodium 137 mmol/L (137-145)
[2020-08-20 06:56] LABS: Procalcitonin < 0.05 ng/mL (<0.5)
[2020-08-20 07:28] LABS: Neutrophils Absolute Manual 4914 /uL (3000-5900); Nucleated Red Blood Cells 1 #/Diff; Total Cells Counted 100
[2020-08-20 07:29] LABS: RBC Morphology Normal Morphology
[2020-08-20] MEDS: CITALOPRAM 10 MG TABLET 20 MG PO (08:49)
[2020-08-20] MEDS: ENOXAPARIN 40 MG/0.4 ML SYRINGE SUBCUT (08:49)
[2020-08-20] MEDS: ASPIRIN EC 81 MG TABLET PO (08:49)
[2020-08-20] MEDS: QUETIAPINE 100 MG TABLET PO (08:52)
--- NOTE | 2020-08-20 09:20 | OT.IPNOTE ---
Pt lives at [facility] and prior was assisted for all ADl needs, therefore discharge OT eval orders.
--- NOTE | 2020-08-20 12:10 | DIET.PN ---
Dietary Progress Note Assessment: Ms. Alonso is an 85-year-old female who lives at a nursing facility across the street was sent over by EMS for evaluation of altered mental status and fevers. Patient arrived hypotensive 88/58, heart rate 81, respirations 17. Two positive blood cultures revealed Staphylococcus aureus bacteremia. Patient has been bed-bound in a home facility for approx 6 mo and for the last 1.5 mo is 1:1 feeding assist. It is reported she has several broken teeth and follows a soft diet. HT: 60in WT: 143lb UBW: 67kg Wt Change: 10.4% (since Dec 2019) BMI: 25.8 Labs: BUN: 30, 24 Gluc: 140, 111 MNA: na Stuart: 13 PO's: 25-50% Nutrition Diagnosis: Inadequate energy intake r/t decreased ability to consume sufficient energy aeb altered level of consciousness, 1:1 feeding assist, reports PO's 25-50%. Interventions: 1. Provided ONS ensure enlive for increased calorie/protein. 2. Recommend soft/easy chew r/t poor dentition. Diet Order: Soft, low fiber (recommend soft, general) EER: 1430 yefri (22cal/kg) 78g (1.2) Monitoring/Evaluations: weight, PO's, ONS acceptance.
--- NOTE | 2020-08-20 15:29 | CM.DPC ---
DCP Cont: Per MD, pt currently getting IV-Abx but waiting for culture sensitivities to determine which oral abx pt can be switched to as decision made by and Idania Barragan that no PICC placement or correction IV-Abx as pt comfort/DNR/DNI. SW called [facility] and confirmed they received the referral yesterday for Info Visit with Idania Barragan and [facility] was able to complete info visit today and Consents in process but not completed yet at this time as they are sent via computer database/virtual but plan is for Guardian to sign Hospice Consents and [facility] will work with [facility] and [facility] to determine start of care date once Consents obtained. JO-ANN called [facility] and updated on pt status and Hospice status and likely pt d/c potentially tomorrow pending cultures and Elin will have RN assess pt bedside this evening and they have lots of availability tomorrow for transport if pt discharges. SW faxed pt clinicals to [facility] for Elin to review. Plan: SW to follow in the morning to determine if pt was switched to oral abx yet and if pt stable for d/c back to [facility] tomorrow via facility van and final update with Idania Barragan on d/c back to [facility]. MANJEET Castañeda
--- NOTE | 2020-08-20 18:28 | PM.PN.1 ---
Subjective Subjective Date Patient Seen: 08/20/20 Time Patient Seen: 18:28 Interval history: Patient is an 85-year-old female. Is a DNR/DNI. Lives at a nursing facility across the street was sent over by EMS for evaluation of altered mental status and fevers and was found to have a Staph aureus bacteremia. Her blood cultures are currently pending sensitivity. Plan as discussed yesterday was to wait for the sensitivities to due to determine the optimal antibiotics for her before discharge back to her home facility. She is also plan for a hospice consultation. Patient denies complaints today, and states that she feels well. Exam Vital Signs (past 8 hours): - 08/20/20 12:00 08/20/20 15:45 Temperature 97.6 F 98.5 F Pulse Rate 68 69 Respiratory Rate 18 18 Blood Pressure 102/50 L Pulse Oximetry 96 95 Oxygen Delivery Method Room Air Oxygen Flow Rate 0 Narrative Exam Narrative: General: Elderly female, appears appropriate age, well nourshied. Sitting upright in hospital bed. NECK: Supple and symmetric. There was no thyroid enlargement, and no tenderness, or masses were felt. CHEST: Normal AP diameter and normal contour LUNGS: Auscultation of the lungs revealed no wheezes, rhonchi, or rales. CARDIOVASCULAR: There was a regular rate and rhythm without any murmurs, gallops, rubs. Peripheral pulses were 2+ and symmetric. ABDOMEN: Soft and nontender with normal bowel sounds. No ascites was noted. MUSCULOSKELETAL: There was no tenderness or effusions noted. EXTREMITIES: No cyanosis, clubbing or edema. NEUROLOGIC: alert, pleasantly confused. Follows commands and GCS 15. Objective Labs Result Diagrams: 08/20/20 05:40 08/20/20 05:40 Labs: Laboratory Results - last 24 hr 08/20/20 08/20/20 08/20/20 05:40 05:40 05:40 WBC 7.8 RBC 3.73 L Hgb 11.1 L Hct 33.9 L MCV 91.0 MCH 29.7 MCHC 32.6 RDW 14.0 Plt Count 188 Neut % (Auto) Not Reportable Lymph % (Auto) Not Reportable [place] % (Auto) Not Reportable Eos % (Auto) Not Reportable Baso % (Auto) Not Reportable Lymph # (Auto) Not Reportable [place] # (Auto) Not Reportable Baso # (Auto) Not Reportable Total Counted 100 Seg Neutrophils % 63.0 Lymphocytes % (Manual) 19.0 L Atypical Lymphs % 9.0 H Monocytes % (Manual) 7.0 Eosinophils % (Manual) 2.0 Neutrophils # (Manual) 4914 Nucleated RBCs 1 H RBC Morphology Normal morphology Sodium 137 Potassium 4.1 Chloride 108 H Carbon Dioxide 27 BUN 24 H Creatinine 0.50 L Estimated GFR > 60.0 BUN/Creatinine Ratio 48.0 H Glucose 111 H Calcium 8.7 Magnesium 2.1 Procalcitonin < 0.05 Assessment & Plan Assessment & Plan narrative: 1.Sepsis secondary to Staphylococcus aureus bacteremia -Based on 2 positive blood cultures -After consulting with patient's primary Dr. Stallworth and patient's appointee Tomas bello we will wait for further cultures to come back and determine if Linzolid oral antibiotic is appropriate for outpatient use. Then we will transition patient off IV medications and transfer to her facility. Ms. Sierra verbalized that she did not consent to allow the patient to have a PICC line placed for 6 or more weeks IV antibiotic therapy which would require the patient to go to a care home facility, nor did she wish to proceed with an echo TTE or an echo transesophageal. -Patient concurrently to continue on vancomycin per pharmacy protocol until sensitivity results back then transition onto oral meds and return patient to her facility for hospice care. -Focus on patient comfort measures per Ms. Sierra request. Hospice Consult ordered per Ms. Sierra request. 2. Acute Metabolic encephalopathy Acute on admission, improving. Patient unresponsive at the time of admissiom WBC 11.5, 88/58, 81, 16, 101.0, 92% at admission, GCS 10, Qsofa 3 Blood cultures x 2 positive Staph aureus, waiting for sensitivity. 3.Dementia, chronic condition, not on admission, stable -patient was obtunded on admission, now improving and pleasantly confused. - appears to be at her neurological baseline today - no behavioral disturbance -Continue quetiapine 100mg Qam/300mg QHS 4.Physical debility and deconditioning, chronic, Acute on admission -On admission pt was unresponsive to painful stimuli. Obtunded - At baseline patient is bed bound and requires full assist. PT signed off further evaluation. 5. Bipolar 1 disorder w/ features of depression, chronic condition, not evident on admission - H/O of psychotic symptoms. No evidence of psychosis at time of evaluation. 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 No history of seizures per review of records. Likely the patient is taking divalproex for bipolar disorder. Dispo: Discharge back to her previous facility once sensitivities result, hopefully tomorrow on oral antibiotics presumably for at least 6 weeks, and the she requires limb nasal lid which she should ideally only take for about a week given the risk of thrombocytopenia. Code: DNR COVID-19 COVID-19 status: Negative
[2020-08-20] MEDS: QUETIAPINE 100 MG TABLET 300 MG PO (20:29)
[2020-08-20] MEDS: DIVALPROEX DR 250 MG TABLET 500 MG PO (20:29)
[2020-08-21 01:10] VITALS: BP 127/79; PULSE 73; RESP 16; TEMP 37.1; O2SAT 97
--- NOTE | 2020-08-21 02:54 | PC.NURSE ---
Patient much more alert and interacting better. Was able to state her name, birthdate and knows she is in the hospital. Is following directions tonight. Breath sounds diminished but CTA with RA sat of 97%; on continuous oximetry HRR. Denies nausea. BT present and abdomen is soft; is incontinent of B&B. Needs assistance to reposition in bed as not moving on her own. Has right hand contracture and foot drop. No new skin concerns noted. Wearing bilateral calf SCD's. Denies pain. Remains on contact isolation as sensitivities on blood cultures are not back as yet. Fall risk score is high at RN discretion and bed alarm is activated.
[2020-08-21 04:00] VITALS: BP 133/66; PULSE 70; RESP 16; TEMP 36.3; O2SAT 96
[2020-08-21 04:05] LABS: Vancomycin Trough 10.5 ug/mL (10-20)
[2020-08-21] MEDS: SODIUM CHLORIDE 0.9% 250 ML 21 ML IV (04:08)
[2020-08-21] MEDS: VANCOMYCIN 1,250 MG/250 ML PIGGYBACK 250 MG IV (04:09)
[2020-08-21] MEDS: SODIUM CHLORIDE 0.9% FLUSH 10 ML IV ×2 (04:09→09:53)
[2020-08-21 09:00] VITALS: BP 134/68; PULSE 64; RESP 18; TEMP 36.3; O2SAT 98
[2020-08-21] MEDS: CITALOPRAM 10 MG TABLET 20 MG PO (09:52)
[2020-08-21] MEDS: AMOXICILLIN 250 MG CAPSULE 500 MG PO (09:52)
[2020-08-21] MEDS: QUETIAPINE 100 MG TABLET PO (09:53)
[2020-08-21] MEDS: ASPIRIN EC 81 MG TABLET PO (09:55)
[2020-08-21] MEDS: ENOXAPARIN 40 MG/0.4 ML SYRINGE SUBCUT (09:55)
--- NOTE | 2020-08-21 10:35 | P.DS_ITS ---
History of Present Illness History of Present Illness Date Patient Seen: 08/21/20 Time Patient Seen: 10:35 Chief complaint: Decreased LOC, Fever Narrative: As per JAIRO Baum: Patient is an 85-year-old female. Is a DNR/DNI. Lives at a nursing facility across the street was sent over by EMS for evaluation of altered mental status and fevers. While in the ER to assess patient, patient was unarousable, Ronald OATES and attempted to also rouse patient without success. Patient when pinched or substernal rub was applied would not open her eyes but only slightly grimaced changing her facial expression without awaking. Blood pressure was hypotensive 88/58, heart rate 81, respirations 17. Patients physical exam was unremarkable. The ER reported to that the patient is a [facility] of the [facility], and that her primary care through [address] Stallworth contacted the [facility] telecommunications sales representative and it was agreed upon that the patient should be brought to the emergency room. Dr. irizarry and requested that the patient receive antibiotics and fluids to see if patient responds within 24 hours if not improving may consider hospice admit. Report was noted to said that patient's normal baseline was active walking and talking around her facili ty independently, and only deficit was that of her dementia. It should be noted that among patients medical history is a history of seizures, but Dr. Stallworth states that the patient is on anti seizure medication for bipolar disorder and has no known history of seizures. Patient unable to provide any HPI. All history was provided by EMS which they obtained by report from the staff. Apparently at baseline the patient has a history of dementia. I am unsure is exactly how high functioning that she is with regard to this diagnosis although it was reported that her mental status today is different from her baseline. Reportedly that the fevers occurred this morning. She did receive Tylenol prior to arrival. The reports that she has ?crackles? in the her left lungs. Discharge Providers Provider Date of admission: 08/18/20 11:34 Discharge Date: 08/21/20 Primary care physician: Roma Loera MD Consults: 08/18/20 13:36 Consult to Dietitian, Adult Routine Comment: Reason For Exam: sepsis, altered level of consciousness 08/18/20 13:37 Consult to Discharge Planning Routine Comment: Consult to Occupational Therapy Evaluate & Treat Comment: Physician Instructions: Evaluate and treat Consult to Physical Therapy Evaluate & Treat Comment: Physician Instructions: Evaluate and Treat 08/19/20 13:44 Consult to Hospice Referral Urgent Comment: Please call Power of Rn Immunology Zully Sierra Discharge provider: Nino West DO Summary Hospital Course Discharge Diagnosis: Please see hospital course by problem list noted below Hospital Course: 1.Sepsis secondary to Staphylococcus warneri bacteremia -Based on 2 positive blood cultures -After consulting with patient's primary Dr. Stallworth and patient's appointee Tomas bello decision was made to wait until her cultures came back and then transfer her back to her home facility. Cultures ultimately ended up growing Staph warneri which is sensitive to penicillins. Recommend at 6 weeks of therapy for presumed endocarditis given decision maker did not want to persue TTE as noted below. Ms. Sierar verbalized that she did not consent to allow the patient to have a PICC line placed for 6 or more weeks IV antibiotic therapy which would require the patient to go to a fdc facility, nor did she wish to proceed with an echo TTE or an echo transesophageal. -patient was continued on vancomycin per pharmacy protocol until cultures resulted at which point she was switched to oral amoxicillin. 2. Acute Metabolic encephalopathy Acute on admission, resolved. Patient unresponsive at the time of admissiom, after treatment of her infection and sepsis patient was back to her baseline mental status. 3.Dementia, chronic condition, not on admission, stable -patient was obtunded on admission as noted above. Now appears to be at baseline. - no behavioral disturbance -Continue quetiapine 100mg Qam/300mg QHS 4.Physical debility and deconditioning, chronic, Acute on admission -On admission pt was unresponsive to painful stimuli. Obtunded - At baseline patient is bed bound and requires full assist. PT signed off further evaluation. -return to prior living facility. 5. Bipolar 1 disorder w/ features of depression, chronic condition, not evident on admission - H/O of psychotic symptoms. No evidence of psychosis at time of evaluation. - Continue CANE WEIGHER regimen of quetiapine 100 mg QAM and 300 mg QHS, citalopram 20 mg daily, and divalproex 500 mg daily. No history of seizures per review of records. Likely the patient is taking divalproex for bipolar disorder. Dispo: Discharge back to her previous facility on 6 weeks of amoxicillin. Code: DNR Time Spent with Patient Time spent: Greater than 30 minutes Exam Vital Signs (past 8 hours): - 08/21/20 04:00 08/21/20 09:00 Temperature 97.4 F L 97.4 F L Pulse Rate 70 64 Respiratory Rate 16 18 Blood Pressure 133/66 134/68 Pulse Oximetry 96 98 Oxygen Delivery Method Room Air Oxygen Flow Rate 0 Narrative Exam Narrative: General: Elderly female, appears appropriate age, well nourshied. Sitting upright in hospital bed. NECK: Supple and symmetric. There was no thyroid enlargement, and no tenderness, or masses were felt. CHEST: Normal AP diameter and normal contour LUNGS: Auscultation of the lungs revealed no wheezes, rhonchi, or rales. CARDIOVASCULAR: There was a regular rate and rhythm without any murmurs, gallops, rubs. Peripheral pulses were 2+ and symmetric. ABDOMEN: Soft and nontender with normal bowel sounds. No ascites was noted. MUSCULOSKELETAL: There was no tenderness or effusions noted. EXTREMITIES: No cyanosis, clubbing or edema. NEUROLOGIC: alert, pleasantly confused. Follows commands and GCS 15. Objective Labs Result Diagrams: 08/20/20 05:40 08/20/20 05:40 Labs: Laboratory Results - last 24 hr 08/21/20 03:30 Vancomycin Trough 10.5 Discharge Plan Discharge Plan Patient Disposition: Assisted Living Transfer to: [facility] Provider Discharge Comment: 1.Sepsis secondary to Staphylococcus warneri bacte remia -Based on 2 positive blood cultures -After consulting with patient's primary Dr. Stallworth and patient's appointee Tomas bello decision was made to wait until her cultures came back and then t ransfer her back to her home facility. Cultures ultimately ended up growing Staph warneri which is sensitive to penicillins. Recommend at 6 weeks of therapy for presumed endocarditis given decision maker did not want to persue TTE as noted below. Ms. Sierra verbalized that she did not consent to allow the patient to have a PICC line placed for 6 or more weeks IV antibiotic therapy which would require the patient to go to a fdc facility, nor did she wish to proceed with an echo TTE or an echo transesophageal. -patient was continued on vancomycin per pharmacy protocol until cultures resulted at which point she was switched to oral amoxicillin. 2. Acute Metabolic encephalopathy Acute on admission, resolved. Patient unresponsive at the time of admissiom, after treatment of her infection and sepsis patient was back to her baseline mental status. 3.Dementia, chronic condition, not on admission, stable -patient was obtunded on admission as noted above. Now appears to be at baseline. - no behavioral disturbance -Continue quetiapine 100mg Qam/300mg QHS 4.Physical debility and deconditioning, chronic, Acute on admission -On admission pt was unresponsive to painful stimuli. Obtunded - At baseline patient is bed bound and requires full assist. PT signed off fur ther evaluation. -return to prior living facility. 5. Bipolar 1 disorder w/ features of depression, chronic condition, not evident on admission - H/O of psychotic symptoms. No evidence of psychosis at time of evaluation. - Continue CANE WEIGHER regimen of quetiapine 100 mg QAM and 300 mg QHS, citalopram 20 mg daily, and divalproex 500 mg daily. No history of seizures per review of records. Likely the patient is taking divalproex for bipolar disorder. Dispo: Discharge back to her previous facility on 6 weeks of amoxicillin. Code: DNR Discharge orders & Medications Discharge Orders: Discharge (Order); Ordered 08/21/20 Ordered By: Nino West Prescriptions: New amoxicillin 250 mg Capsule 500 mg PO TID 42 Days Qty: 252 RF: 0 Continued diphenhydramine HCl [Benadryl Allergy] 25 MG tablet 25 mg PO Q4HP PRN (Reason: Itching) Qty: 0 RF: 0 acetaminophen 325 MG tablet 325 mg PO Q4H PRN (Reason: Fever Or Pain) Qty: 0 RF: 0 quetiapine [Seroquel] 300 MG tablet 300 mg PO HS Qty: 30 RF: 2 divalproex 250 mg tablet,delayed release (DR/EC) 500 mg PO BEDTIME RF: 0 quetiapine 100 mg tablet 100 mg PO QAM RF: 0 multivitamin with minerals Tablet 1 tab PO QAM RF: 0 sodium chloride [Saline Mist] 0.65 % Aerosol,[place] 2 spray INTRANASAL BID RF: 0 nystatin 100,000 unit/gram powder 1 applic TOPICAL PRN PRN (Reason: Rash) RF: 0 diphenhydramine-zinc acetate 2-0.1 % Cream 1 applic TOPICAL TID RF: 0 loratadine 10 mg Tablet 10 mg PO QAM RF: 0 lanolin Cream 1 applic TOPICAL BID RF: 0 citalopram [Celexa] 20 MG tablet 20 mg PO QAM RF: 0 aspirin 81 MG tablet,chewable 81 mg PO QAM RF: 0 Follow up/Referrals: Roma Loera MD [Primary Care Provider] - Discharge Health Status Multidrug resistant organism: No MDRO Precautions: [place] Diet/Activity/Treatments Diet: Diet as Tolerated Activity: As tolerated. Visit Report/Discharge Packet Instructions: Sepsis, DI for Sepsis -- Adult, Amoxicillin Visit Report Forms: Patient Portal/API, Stroke Signs & Symptoms Discharge Data Primary Care Provider: Roma Loera
[2020-08-21 11:40] LABS: COVID19 -Nasal RAPID Negative (Negative)
--- NOTE | 2020-08-21 12:31 | CM.DPC ---
DCP: continued: case received and discussed in Bedside Rounds. EMR reviewed. Pt has d/c to [facility] orders for today. Have spoken with Elin/Greg Soares at [facility] who did clear pt for readmittance to [facility] today. Ambulance is set up for 1330 today. Pt is bedbound at baseline with poor trunk control and severely impaired mentally and physically. Guardian Laurel was updated and she is agreeable to plan. She will be following up with [facility] to complete the referral process. DC infor is faxed now to Moe and DAKOTAH.
--- NOTE | 2020-08-21 12:44 | PC.NURSE ---
Day shift: Per Dr West ok for Pt to be taken off of contact precautions. This was done at 1245.
--- NOTE | 2020-08-21 13:42 | PC.NURSE ---
Day shift: Pt left AC unit at approx 1342 w/ BLS transport team. Pt heading back to her halfway. Her paperwork is in packet and BLS team has it. Pt has all personal belongings. Pt had no c/o about going back Home today.
== END 2020-08-21 13:44 | DRG 871 ==
LOC: ED 10:40 → AC 08-19 08:49
PROVIDERS: Internal Medicine; Nurse Practitioner Adult Health; Nurse Practitioner Family; Admitting Provider Internal Medicine; Emergency Provider Emergency Medicine; PCP Family Medicine; Referring Provider Emergency Medicine; Visit Provider Internal Medicine
DX: A41.01 Sepsis due to Methicillin susceptible Staphylococcus aureus (principal); G93.41 Metabolic encephalopathy; F03.91 Unspecified dementia, unspecified severity, with behavioral disturbance; R65.20 Severe sepsis without septic shock; I95.9 Hypotension, unspecified; F31.9 Bipolar disorder, unspecified; N32.81 Overactive bladder; Z66 Do not resuscitate; Z11.59 Encounter for screening for other viral diseases
CPT/HCPCS: 36415; 36592; 70450; 71045; 71046; 80048; 80053; 80202; 80320; 81003; 81015; 82140; 82550; 83605; 83690; 83735; 84145; 84484; 85025; 87040; 87150; 87186; 87205; 87635; 93005; 94762; 96361; 96365; 96367; 99284; J1650; J2543

== ENCOUNTER → 2020-08-31 12:08 | Outpatient (ROUT) | payer OTHER, MEDICARE, MEDICAID, SELFPAY ==
[2020-08-18 14:40] VITALS: BMI 26.2
[2020-08-31 13:10] LABS: COVID19 -Nasal RAPID Negative (Negative)
== END ==
PROVIDERS: PCP Family Medicine; Visit Provider Internal Medicine
DX: Z03.818 Encounter for observation for suspected exposure to other biological agents ruled out (principal)
CPT/HCPCS: 87635